=== PATIENT | female | born 1940 | race Caucasian/White ===

== ENCOUNTER → 2019-12-25 10:53 | Outpatient (BNVA) | payer MEDICARE, SELFPAY | PROVIDERS: Family Provider Family Medicine; PCP Family Medicine; Visit Provider Specialist | DX: B02.29 Other postherpetic nervous system involvement (principal); Z87.891 Personal history of nicotine dependence | CPT/HCPCS: 99213 ==

== ENCOUNTER → 2020-09-25 09:21 | Outpatient (BNVA) | payer MEDICARE, SELFPAY | PROVIDERS: Family Provider Family Medicine; PCP Family Medicine; Visit Provider Specialist | DX: B02.29 Other postherpetic nervous system involvement (principal); Z87.891 Personal history of nicotine dependence | CPT/HCPCS: 99213 ==

== ENCOUNTER 2020-10-29 11:18 | Emergency (ER) | payer MEDICARE, SELFPAY ==
[2020-10-29 11:27] VITALS: BP 152/87; PULSE 73; RESP 18; TEMP 36.3; O2SAT 94; BMI 37.9
--- NOTE | 2020-10-29 11:38 | XRR_ITS ---
PROCEDURE INFORMATION: Exam: XR Chest, 1 View Exam date and time: 10/29/2020 12:21 PM Age: 80 years old Clinical indication: Dyspnea and shortness of breath; Prior surgery; Patient HX: HX of breast cancer TECHNIQUE: Imaging protocol: XR of the chest Views: 1 view. COMPARISON: No relevant prior studies available. FINDINGS: Lungs: Unremarkable. No consolidation. Pleural space: Unremarkable. No pleural effusion. No pneumothorax. Heart/Mediastinum: Unremarkable. No cardiomegaly. Bones/joints: Unremarkable. Soft tissues: Intact bilateral breast implants are present. XR/XR chest 1V portable [id number] IMPRESSION: 1. No acute findings. 2. Intact bilateral breast implants.
--- NOTE | 2020-10-29 11:45 | ECG_ITS ---
[facility] Test Date: 2020-10-29 Pat Name: Vivienne Bishop Department: Room: Gender: Female Mattress Stuffer: : 1940 Requested By: Pan Martinez Order Number: [id number] Fredrick MD: Sarah Quach M.D. Measurements Intervals [place] Rate: 70 P: 60 [place]: 176 QRS: 65 QRSD: 92 T: 56 QT: 389 QTc: 422 Interpretive Statements SINUS RHYTHM No previous ECG available for comparison Electronically Signed On 10-29-2020 20:04:55 BODY STYLIST by Sarah Quach M.D. [id number]
--- NOTE | 2020-10-29 11:45 | W.ED.NAVMDI ---
HPI - Nausea/Vomiting/Diarrhea General: Chief complaint: Nausea/Vomiting/Diarrhea Stated complaint: COVID+, SOB,VOMITING, DIAHREA, WEAKNESS Time Seen by Provider: 10/29/20 11:33 History of Present Illness: HPI Narrative: The patient is a 80-year-old female who comes to the ER complaining of mild shortness of breath and generalized weakness. She tested positive for Covid 2 to 3 weeks ago and feels good some days but bad some days. She has been unable to eat or drink today and feels generally weak. She has been vomiting and having some diarrhea at home as well. MD elicited complaint: nausea, vomiting and diarrhea Associated nausea: Yes Location of pain: Diffuse Quality: cramping Exacerbating factors: eating Relieving factors: none Associated symtoms: Reports cough, fatigue, anorexia, malaise, myalgias and nausea; Denies anxiety, change in vision, chest pain, dizziness, headache(s), palpitations or short of breath Review of Systems General: Reports: 10 or more systems reviewed and unremarkable except in HPI and below Const: Reports: fatigue and malaise Eyes: Denies: change in vision, blurry vision or eye redness ENMT: Denies: throat pain, swelling of lips/tongue, ear or mastoid pain or nasal congestion Card: Denies: chest pain, palpitations, irregular heart rhythm, edema, dyspnea on exertion or orthopnea Resp: Reports: non-productive cough; Denies: dyspnea or productive cough GI: Reports: nausea, vomiting, diarrhea and GI cramping : Denies: flank pain, difficulty voiding, urinary frequency or urinary urgency Musc: Denies: neck pain, back pain, extremity pain, joint pain, joint redness, limited range of motion or muscle weakness Skin/Breast: Denies: rash, pruritus, erythema, skin pain or skin tenderness Neuro: Denies: headache(s), numbness in extremities, weakness in extremities, sensory changes, difficulty walking, dizziness, confusion or Slurred speech present Psych: Denies: anxiety or depression Endo: Denies: polyuria All/Imm: Denies: urticaria, throat swelling or tongue swelling PFSH ED PFSH: Family History Other CAD (coronary artery disease) Cancer Hypertension Stroke Denies family history of Diabetes Social History Smoking and tobacco status: former smoker Quit status (tobacco): has quit using tobacco Year quit tobacco: 1975 Alcohol intake: never History of recent travel: No Physical Exam Const: COMMON NORMALS: no acute distress, average body habitus, patient oriented x3, no limitations, healthy appearing, alert and well nourished GENERAL APPEARANCE: cooperative, comfortable, well kempt and well developed ORIENTATION/CONSCIOUSNESS: Yes awake, Yes oriented to person, Yes oriented to place and Yes oriented to time HENMT: COMMON NORMALS: normocephalic, external ears normal and Normal external nose present HEAD & SCALP: normal to inspection and normocephalic NOSE: Normal external nose present EXTERNAL EAR: Yes external ears normal MOUTH: Normal oral and palatal mucosa present THROAT: posterior oropharynx normal Eye: COMMON NORMALS: Equal, round and reactive pupils present and EOMs intact bilaterally GENERAL EYE: appearance normal, both eyes and all related structures PUPIL: Yes Equal, round and reactive pupils present Neck/C-Spine: COMMON NORMALS: full ROM, no lymphadenopathy, no meningeal signs and no JVD GENERAL: Yes normal visual inspection Lymph: LYMPHATIC: no lymphadenopathy noted Chest: COMMONS NORMALS: normal inspection of the chest and normal palpation of entire chest wall Resp: COMMON NORMALS: normal respiratory effort, No retractions, No use of accessory muscles, clear to auscultation bilaterally and percussion normal EFFORT & INSPECTION: Yes able to speak in complete sentences AUSCULTATION: clear to auscultation bilaterally PERCUSSION: percussion normal Cardio: COMMON NORMALS: no JVD, regular rate, regular rhythm, S1 normal heart sound present, S2 normal heart sound present and Peripheral pulses 2+ throughout RATE: regular rate RHYTHM: regular rhythm HEART SOUNDS: S1 normal heart sound present and S2 normal heart sound present PERIPHERAL PULSES: Peripheral pulses 2+ throughout GI: COMMON NORMALS: Normal to inspection, nondistended, normoactive bowel sounds present, Soft to palpation, non-tender and no masses INSPECTION: Yes normal to inspection PALPATION: Yes Soft to palpation : COMMON NORMALS: Yes no CVA tenderness BLADDER/KIDNEY EXAM: Yes no CVA tenderness Back/Pelvis: COMMON NORMALS: no CVA tenderness, thoracic and lumbar spine normal to inspection, no thoracic nor lumbar tenderness and thoraco-lumbar ROM normal Extremity: COMMON NORMALS: normal to inspection, full ROM, capillary refill normal, no joint enlargement and no pedal edema GENERAL: Yes normal exam except as noted Neuro: COMMON NORMALS: patient oriented x3, CN's II-XII intact bilaterally, moves all extremities, no focal motor deficits, no sensory deficits noted and gait normal SENSORIUM/ORIENTATION: Yes alert, Yes oriented to person, Yes oriented to place and Yes oriented to time MENINGEAL SIGNS: Yes no meningeal signs Psych: COMMON NORMALS: mental status grossly normal, Normal thought process present, cooperative, normal affect and speech normal APPEARANCE: Yes well kempt ATTITUDE: Yes calm SPEECH: Yes normal speech THOUGHT PROCESS: Normal thought process present Skin: COMMON NORMALS: no rashes or lesions noted GENERAL SKIN EXAM: no rashes or lesions noted Course Vital Signs: Vital signs: Vital Signs Temperature 97.3 F L 10/29/20 11:27 Pulse Rate 76 10/29/20 14:12 Respiratory Rate 19 H 10/29/20 14:12 Blood Pressure 166/100 10/29/20 14:12 Pulse Oximetry 95 10/29/20 14:12 MDM - Nausea/Vomiting/Diarrhea MDM Narrative: Medical decision making narrative: The patient came in complaining of prolonged fatigue, vomiting, diarrhea and weakness likely related to recovering from Covid. She was given fluids, Toradol, Zofran with good improvement of her symptoms. Imaging was normal and she is stable for discharge home. ER with worsening symptoms otherwise follow-up with primary care doctor in a few days Lab Data: Labs: Lab Results 10/29/20 10/29/20 10/29/20 Range/Units 11:47 11:47 11:47 WBC 4.9 (4.0-10.0) 10^3/ uL RBC 4.65 (4.1-5.3) 10^6/u L Hgb 13.9 (11.5-15.3) g/dL Hct 41.8 (37.0-47.0) % MCV 89.9 (81-99) fL MCH 29.9 (28.0-34.0) pg MCHC 33.3 (30.0-36.0) g/dL RDW 13.6 (12.1-15.1) % Plt Count 261 (130-400) 10^3/c mm MPV 9.7 (7.4-10.4) fL Neut % (Auto) 64.2 % Lymph % (Auto) 25.9 % [place] % (Auto) 9.3 % Eos % (Auto) 0.2 % Baso % (Auto) 0.2 % Neut # (Auto) 3.17 (1.8-7.7) 10^3/u L Lymph # (Auto) 1.3 (0.8-4.8) 10^3/u L [place] # (Auto) 0.5 (0.2-0.9) 10^3/u L Eos # (Auto) 0.0 (0.0-0.8) 10^3/u L Baso # (Auto) 0.0 (0.0-0.1) 10^3/u L Nucleated RBC % (a uto) 0 % Nucleated RBCs # 0.0 /100WBC D-Dimer 2.11 H (0-0.59) ug/mIFE U Sodium 138 (136-145) mmol/L Potassium 3.5 (3.5-5.1) mmol/L Chloride 97 L (98-107) mmol/L Carbon Dioxide 29 (22-29) mmol/L Anion Gap 15.5 (5-19) BUN 18 (8-23) mg/dL Creatinine 0.8 (0.5-0.9) mg/dL GFR Calculation Not Reportable Glucose 109 (65-115) mg/dL Calculated Osmolal ity 288 (285-295) mOsm/k g Lactate (0.5-2.2) mmol/L Calcium 9.3 (8.5-10.5) mg/dL Total Bilirubin 0.7 (0.15-1.2) mg/dL AST 34 H (0-32) U/L ALT 26 (0-33) U/L Alkaline Phosphata se 111 H (35-105) IU/L Troponin T Baselin e (0-10) ng/L NT-Pro-B Natriuret Pep 322 (0-450) pg/mL Total Protein 7.0 (6.6-8.7) g/dL Albumin 3.8 (3.5-5.2) g/dL Globulin 3.2 (1.3-4.6) g/dL Lipase 19 (13-60) U/L 10/29/20 10/29/20 Range/Units 11:47 11:47 WBC (4.0-10.0) 10^3/ uL RBC (4.1-5.3) 10^6/u L Hgb (11.5-15.3) g/dL Hct (37.0-47.0) % MCV (81-99) fL MCH (28.0-34.0) pg MCHC (30.0-36.0) g/dL RDW (12.1-15.1) % Plt Count (130-400) 10^3/c mm MPV (7.4-10.4) fL Neut % (Auto) % Lymph % (Auto) % [place] % (Auto) % Eos % (Auto) % Baso % (Auto) % Neut # (Auto) (1.8-7.7) 10^3/u L Lymph # (Auto) (0.8-4.8) 10^3/u L [place] # (Auto) (0.2-0.9) 10^3/u L Eos # (Auto) (0.0-0.8) 10^3/u L Baso # (Auto) (0.0-0.1) 10^3/u L Nucleated RBC % (a uto) % Nucleated RBCs # /100WBC D-Dimer (0-0.59) ug/mIFE U Sodium (136-145) mmol/L Potassium (3.5-5.1) mmol/L Chloride (98-107) mmol/L Carbon Dioxide (22-29) mmol/L Anion Gap (5-19) BUN (8-23) mg/dL Creatinine (0.5-0.9) mg/dL GFR Calculation Glucose (65-115) mg/dL Calculated Osmolal ity (285-295) mOsm/k g Lactate 1.3 (0.5-2.2) mmol/L Calcium (8.5-10.5) mg/dL Total Bilirubin (0.15-1.2) mg/dL AST (0-32) U/L ALT (0-33) U/L Alkaline Phosphata se (35-105) IU/L Troponin T Baselin e 10 (0-10) ng/L NT-Pro-B Natriuret Pep (0-450) pg/mL Total Protein (6.6-8.7) g/dL Albumin (3.5-5.2) g/dL Globulin (1.3-4.6) g/dL Lipase (13-60) U/L Discharge Plan Discharge Patient Disposition: Home Clinical Impression: Gastroenteritis Condition: Stable Prescriptions: New ondansetron 4 mg tablet,disintegrating 4 mg PO Q8H 4 Days Qty: 12 RF: 0 No Action hydrocodone-acetaminophen [Wiseman] 5-325 mg tablet 1 tab PO BID PRN (Reason: pain) 30 Days Qty: 60 RF: 0 gabapentin 400 mg capsule 1,200 mg PO BID Qty: 180 RF: 3 simvastatin 20 mg tablet 20 mg PO DAILY RF: 0 vitamin E 200 unit capsule 200 unit PO DAILY RF: 0 aspirin [Aspir-81] 81 mg tablet,delayed release (DR/EC) 81 mg PO DAILY RF: 0 Discharge Orders: Discharge ED (Routine); Ordered 10/29/20 Ordered By: Pan Martinez Referrals: George Walker MD [Primary Care Provider] - Discharge Diet: Advance as tolerated Discharge Activity: Resume usual activity Activity Restrictions/Additional Instructions: You are likely still suffering from weakness related to recovering from Covid. Please continue to drink lots of fluids and take Tylenol and ibuprofen to help you with the symptoms as well as Zofran to help with the nausea and vomiting. Return to the ER with worsening symptoms otherwise follow-up with your primary care physician in a few days. Coding Level of Care Code ED Proposal Specialist for Manuelito Fwanibal Exam Comprehensive
[2020-10-29] MEDS: acetaminophen 325 mg Tablet 650 MG PO (11:56)
[2020-10-29 11:57] LABS: Basophils % 0.2 %; Eosinophils % 0.2 %; Hematocrit 41.8 % (37.0-47.0); Hemoglobin 13.9 g/dL (11.5-15.3); Lymphocytes # 1.3 10^3/uL (0.8-4.8); Lymphocytes % 25.9 %; Mean Corpuscular HGB Conc 33.3 g/dL (30.0-36.0); Mean Corpuscular Hemoglobin 29.9 pg (28.0-34.0); Mean Corpuscular Volume 89.9 fL (81-99); Mean Platelet Volume 9.7 fL (7.4-10.4); Monocytes # 0.5 10^3/uL (0.2-0.9); Monocytes % 9.3 %; Neutrophils # 3.17 10^3/uL (1.8-7.7); Neutrophils % 64.2 %; Nucleated Red Blood Cells % 0 %; Platelet Count 261 10^3/cmm (130-400); Red Blood Count 4.65 10^6/uL (4.1-5.3); Red Cell Distribution Width 13.6 % (12.1-15.1); White Blood Count 4.9 10^3/uL (4.0-10.0)
[2020-10-29] MEDS: sodium chloride 0.9% 1,000 ML 999 ML IV (11:58)
[2020-10-29 12:00] VITALS: BP 155/90; PULSE 71; RESP 14; O2SAT 97
[2020-10-29 12:13] LABS: D Dimer 2.11 ug/mIFEU (0-0.59)
[2020-10-29 12:14] LABS: Slide Review Slide Review Perform
[2020-10-29 12:22] LABS: Lactate (Lactic Acid level) 1.3 mmol/L (0.5-2.2); Troponin(5th) Baseline 10 ng/L (0-10)
[2020-10-29] MEDS: ondansetron 2 mg/ML SDV 2 mL 4 MG IVP (12:26)
[2020-10-29 12:29] LABS: Alanine Aminotransferase 26 U/L (0-33); Albumin Level 3.8 g/dL (3.5-5.2); Alkaline Phosphatase 111 IU/L (35-105); Anion Gap 15.5 (5-19); Aspartate Amino Transferase 34 U/L (0-32); Blood Urea Nitrogen 18 mg/dL (8-23); Calcium 9.3 mg/dL (8.5-10.5); Carbon Dioxide 29 mmol/L (22-29); Chloride 97 mmol/L (98-107); Globulin 3.2 g/dL (1.3-4.6); Glucose 109 mg/dL (65-115); Lipase 19 U/L (13-60); NT Pro B Type Natriuretic Pept 322 pg/mL (0-450); Osmolality Calculated 288 mOsm/kg (285-295); Potassium 3.5 mmol/L (3.5-5.1); Sodium 138 mmol/L (136-145); Total Bilirubin 0.7 mg/dL (0.15-1.2)
--- NOTE | 2020-10-29 12:48 | CT_ITS ---
WS: [id number] CT CHEST ANGIOGRAPHY WITH REFORMATS HISTORY: r/o PE TECHNIQUE: Contiguous axial images are obtained through the chest during arterial injection of intrav enous contrast. Images are reconstructed to evaluate the pulmonary arteries. MIP imaging also reviewe d. All CT scans at [facility] use at least one of these dose optimization techniques: aut omated exposure control; mA and/or kV adjustment per patient size (includes targeted exams where dose is matched to clinical indication); or iterative reconstruction. CONTRAST: Omnipaque 350; 95 mL IV. DLP: 617.12 mGy.cm COMPARISON: None available. Limited opacification of the pulmonary arteries. Poor contrast bolus injection. There is no central p ulmonary embolism. Beyond the segmental branches the opacification is limited. Pulmonary artery is en larged. Mild atherosclerosis of aorta. No aneurysm or dissection. Moderate enlargement of the heart w ith no pericardial effusion. No pleural effusion. Moderate scattered opacifications. Groundglass opacifications with increasing areas of consolidation in the periphery of the lower lobes. Consistent with a history of Covid. No suspicious mass or pneumo anastasiya. No mediastinal or hilar adenopathy. Bilateral mastectomies. Prior cholecystectomy. Visualized liver is negative on the early enhancement phase. No adrenal mass. Mild central pancolitis. Increase in the thoracic kyphosis. No osteoblastic or osteolytic bone disease. CT/CT angio chest PE protcl [id number] IMPRESSION: 1. No central pulmonary emboli. 2. Pulmonary hypertension. 3. Scattered pulmonary opacifications and typical distribution for Covid 19. 4. Moderate cardiomegaly.
[2020-10-29 13:08] VITALS: BP 139/96; PULSE 72; RESP 17; O2SAT 98
[2020-10-29] MEDS: iohexol 350 mg/mL 100 mL Btl IV (13:54)
[2020-10-29 14:12] VITALS: BP 166/100; PULSE 76; RESP 19; O2SAT 95
[2020-10-29 15:32] VITALS: BP 145/100; PULSE 73; RESP 15; O2SAT 98
== END 2020-10-29 15:33 | disposition home or self-care (01) ==
PROVIDERS: Emergency Provider Family Medicine; PCP Family Medicine
DX: K52.9 Noninfective gastroenteritis and colitis, unspecified (principal); Z79.82 Long term (current) use of aspirin; Z87.891 Personal history of nicotine dependence
CPT/HCPCS: 12345; 71045; 71275; 80053; 83605; 83690; 83880; 84484; 85025; 85378; 87040; 93005; 96361; 96374; 99284; J2405; J7030; Q9967

== ENCOUNTER → 2021-04-21 09:57 | Outpatient (BNVA) | payer MEDICARE, SELFPAY | PROVIDERS: PCP Family Medicine; Visit Provider Specialist | DX: B02.29 Other postherpetic nervous system involvement (principal) | CPT/HCPCS: 99213 ==

== ENCOUNTER → 2021-07-22 07:59 | Outpatient (BNVA) | payer MEDICARE, SELFPAY | PROVIDERS: PCP Family Medicine; Visit Provider Specialist | DX: B02.29 Other postherpetic nervous system involvement (principal); Z87.891 Personal history of nicotine dependence | CPT/HCPCS: 99213; 99214 ==

== ENCOUNTER → 2022-03-17 13:05 | Outpatient (BNVA) | payer MEDICARE, SELFPAY | PROVIDERS: PCP Family Medicine; Visit Provider Specialist | DX: B02.29 Other postherpetic nervous system involvement (principal); Z79.891 Long term (current) use of opiate analgesic | CPT/HCPCS: 99213; 99214 ==

== ENCOUNTER → 2022-06-17 15:00 | Outpatient (BNVA) | payer MEDICARE, SELFPAY | PROVIDERS: PCP Family Medicine; Visit Provider Specialist | DX: B02.29 Other postherpetic nervous system involvement (principal); Z79.891 Long term (current) use of opiate analgesic | CPT/HCPCS: 99213; 99214 ==

== ENCOUNTER → 2022-11-25 15:43 | Outpatient (BNVA) | payer MEDICARE, SELFPAY | PROVIDERS: PCP Family Medicine; Visit Provider Specialist | DX: B02.29 Other postherpetic nervous system involvement (principal) | CPT/HCPCS: 99213 ==

== ENCOUNTER → 2023-05-25 08:12 | Outpatient (BNVA) | payer MEDICARE, SELFPAY | PROVIDERS: PCP Family Medicine; Visit Provider Specialist | DX: B02.29 Other postherpetic nervous system involvement (principal) | CPT/HCPCS: 99213 ==

== ENCOUNTER → 2023-11-17 09:12 | Outpatient (BNVA) | payer MEDICARE, SELFPAY | PROVIDERS: PCP Family Medicine; Visit Provider Specialist | DX: B02.29 Other postherpetic nervous system involvement (principal); R29.90 Unspecified symptoms and signs involving the nervous system | CPT/HCPCS: 99213 ==

== ENCOUNTER → 2024-10-18 14:10 | Outpatient (BNVA) | payer MEDICARE, SELFPAY | PROVIDERS: PCP Family Medicine; Referring Provider Family Medicine; Visit Provider Specialist | DX: B02.23 Postherpetic polyneuropathy (principal); R29.90 Unspecified symptoms and signs involving the nervous system; B02.29 Other postherpetic nervous system involvement | CPT/HCPCS: 99213 ==

== ENCOUNTER → 2025-04-18 11:44 | Outpatient (BNVA) | payer MEDICARE, SELFPAY | PROVIDERS: PCP Family Medicine; Visit Provider Specialist | DX: B02.23 Postherpetic polyneuropathy (principal); R29.90 Unspecified symptoms and signs involving the nervous system; B02.29 Other postherpetic nervous system involvement | CPT/HCPCS: 99212 ==

== ENCOUNTER 2025-07-28 12:13 | Emergency (ER) | payer MEDICARE, SELFPAY ==
--- NOTE | 2025-07-28 12:17 | ECG_ITS ---
[facility] Date: 2025-07-28 Pat Name: Vivienne Bishop Department: Room: Gender: Female Testing Director: : 1940 Requested By: Regine Whelan Order Number: [id number] Fredrick MD: Arsalan Orellana M.D. Measurements Intervals [place] Rate: 87 P: 2 IN: 174 QRS: 81 QRSD: 93 T: 81 QT: 367 QTc: 444 Interpretive Statements SINUS RHYTHM LOW QRS VOLTAGE IN PRECORDIAL LEADS [QRS DEFLECTION < 1.0 mV IN CHEST LEADS] MINIMAL ST DEPRESSION [0.025+ mV ST DEPRESSION] Compared to ECG 10/29/2020 12:00:49 Low QRS voltage now present ST (T wave) deviation now present Electronically Signed On 07-31-2025 19:33:27 CDT by Arsalan Orellana M.D. [id number]
--- NOTE | 2025-07-28 12:17 | XRR_ITS ---
PROCEDURE INFORMATION: Exam: XR Chest Exam date and time: 07/28/2025 1:51 PM Age: 84 years old Clinical indication: Pain; Chest pressure; Additional info: Chest pain TECHNIQUE: Imaging protocol: Radiologic exam of the chest. Views: 1 view. COMPARISON: CT angio chest PE protcl [id number] 10/29/2020 1:40 PM FINDINGS: Lungs: Pulmonary vessels are within normal limits. Left basilar linear density. Pleural spaces: No pneumothorax. Heart/Mediastinum: Cardiomediastinal silhouette is within normal limits. Bones/joints: Unremarkable. XR/XR chest 1V portable [id number] IMPRESSION: 1. No acute pulmonary finding. 2. Left basilar linear density. Finding could represent scarring or atelectasis.
--- OUTSIDE RECORDS SUMMARY | 2025-07-28 12:19 | XMS_ITS | Encounter Summary ---
Author Organization [facility] Address [address] [place] [address] Care Team Providers Care Scrap Cutter Name Role Phone Non-Staff, Physician Primary Care Provider Unava ilable Encounter Details Date Type Department Care Team (Late st Contact Info) Description 11/25/2005 [place] [facility] [facility] [address] [place] [phone] Eros Munoz MD [address] [place] [address] MALIGN NEOPL BREAST NEC (CMS/HCC) (Primary Dx) Social History Tobacco Use Types Packs/Day Years Used Date Smoking Tobacco: Never Assessed Comments Unknown Sex and Gender Information Value Date Recorded Sex Assigned at Not on file Legal Sex 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
--- OUTSIDE RECORDS SUMMARY | 2025-07-28 12:19 | XMS_ITS | Encounter Summary ---
Author Organization [facility] Address [address] [place] [address] Care Team Providers Care Coal Tower Operator Name Role Phone Non-Staff, Physician Primary Care Provider Unava ilable Encounter Details Date Type Department Care Team (Latest Contact Info) Description 02/14/2003 Outpatient Historical [facility] [address] [place] [phone] Prince Martinez MD NO ADDRESS ON FILE MALIGN NEOPL BREAST NEC (CMS/HCC) (Primary Dx) Social History Tobacco Use Types Packs/Day Years Used Date Smoking Tobacco: Never Assessed Comments Unknown Sex and Gender Information Value Date Recorded Sex Assigned at Not on file Legal 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
--- OUTSIDE RECORDS SUMMARY | 2025-07-28 12:19 | XMS_ITS | Encounter Summary ---
Author Organization [facility] Address [address] [place] [address] Care Team Providers Care Search Engine Marketing Strategist Name Role Phone Non-Staff, Physician Primary Care Provider Unava ilable Encounter Details Date Type Department Care Team (Latest Contact Info) Description 06/27/2003 Outpatient Historical [facility] [place] [address] [place] [address] Diogenes Bah MD [address] [place] [phone] ANAL OR RECTAL PAIN (Primary Dx) Social History Tobacco Use Types Packs/Day Years Used Date Smoking Tobacco: Never Assessed Comments Unknown Sex and Gender Information Value Date Recorded Sex Assigned at Not on file Legal 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
--- OUTSIDE RECORDS SUMMARY | 2025-07-28 12:19 | XMS_ITS | Encounter Summary ---
Author Organization [facility] Address [address] [place] [address] Care Team Providers Care Grizzly Worker Name Role Phone Non-Staff, Physician Primary Care Provider Unava ilable Encounter Details Date Type Department Care Team (Latest Contact Info) Description 08/22/2003 Outpatient Historical [facility] [place] [facility] [address] [place] [phone] Prince Martinez MD NO ADDRESS ON FILE MALIGN NEOPL BREAST NEC (CMS/HCC) (Primary Dx) Social History Tobacco Use Types Packs/Day Years Used Date Smoking Tobacco: Never Assessed Comments Unknown Sex and Gender Information Value Date Recorded Sex Assigned at Not on file Legal Sex Female 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
[2025-07-28 12:20] VITALS: BP 115/75; PULSE 87; RESP 17; TEMP 36.7; O2SAT 96; BMI 38.4
--- OUTSIDE RECORDS SUMMARY | 2025-07-28 12:20 | XMS_ITS | Encounter Summary ---
Author Organization [facility] Address [address] [place] [address] Care Team Providers Care Cranberry Grower Name Role Phone Non-Staff, Physician Primary Care Provider Unava ilable Encounter Details Date Type Department Care Team (Late st Contact Info) Description 11/29/2006 [place] [facility] [place] [facility] [address] [place] [phone] Eros Munoz MD [address] [place] [address] Malignant Neoplasm of Other Specified Sites of Female Breast (CMS/HCC) (Primary Dx) Social History Tobacco Use Types Packs/Day Years Used Date Smoking Tobacco: Never Assessed Comments Unknown Sex and Gender Information Value Date Recorded Sex Assigned at Not on file Legal Sex Female 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
--- OUTSIDE RECORDS SUMMARY | 2025-07-28 12:20 | XMS_ITS | Clinical Summary ---
Author Organization [facility] Address [address] [place] [address] Care Team Providers Care Privacy Attorney Name Role Phone Non-Staff, Physician Primary Care Provider Unava ilable Allergies No known active allergies Medications atorvastatin (LIPITOR) 20 mg Oral tablet Take 20 mg by mouth Daily LATE. Active gabapentin (NEURONTIN) 100 mg capsule Take 100 mg by mouth 4 times daily. Active Active Problems Problem Noted Date Diagnosed Date Personal history of malignant neoplasm of breast 03/02/2013 Diverticulitis of colon (wit hout mention of hemorrhage)(562.11) 08/27/2010 Malignant neoplasm of other specified sites of female breast Family History Medical History Relation Name Comments Cancer Father Heart Disease Mother Relation Name Status Comments Father Mother Social History Tobacco Use Types Packs/Day Years Used Date Smoking Tobacco: Former Cigarettes 0 [birth year]02[birth year]1951 - 03/02/1976 Alcohol Use Standard Drinks/Week Comments No 0 (1 standard drink = 0.6 oz pur e alcohol) Comments Unknown Sex and Gender Information Value Date Recorded Sex Assigned at Not on file Legal Sex Female 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 Gender Identity Not on file Sexual Orientation Not on file Last Filed Vital Signs Vital Sign Reading Time Taken Comments Blood Pressure 116/80 05/08/2016 9:13 AM CDT Pulse 71 05/08/2016 9:13 AM CDT Temperature 35.9 C (96.6 F) 05/08/2016 9:13 AM CDT Respiratory Rate - - Oxygen Saturation 98% 05/08/2016 9:13 AM CDT Inhaled Oxygen Concentration - - Weight 105.2 kg (232 lb) 05/08/2016 9:13 AM CDT Height 165.1 cm (5' 5 ) 05/08/2016 9:13 AM CDT Body Mass Index 38.61 05/08/2016 9:13 AM CDT Plan of Treatment Health Maintenance Due Date Last Done Comments DTAP/TDAP/TD VACCINES (1 - Tdap) 1960 PNEUMOCOCCAL VACCINE 50+ YEARS (1 of 1 - PCV) 10/24/18 92 ZOSTER VACCINE (1 of 2) 1991 OSTEOPOROSIS SCREENING 2006 RSV VACCINE (60+ or ) (1 - 1-dose 75+ series) 2016 INFLUENZA VACCINE (#1) [address] [place] [id number] MEDICARE PART A AND B [place] [id number] Care Teams Privacy Attorney Relationship Specialty Start Date End Date Non-Staff, Physician NO ADDRESS ON FILE PCP - General 11/10/07
--- OUTSIDE RECORDS SUMMARY | 2025-07-28 12:20 | XMS_ITS | Clinical Summary ---
Author Organization [facility] Address [address] Andrews: Epic Prelude ADT ELISA ASKEW [id number] Care Team Providers Care Rfid Systems Architect Name Role Phone Non-Staff, Physician Primary Care Provider Unava ilable Allergies No known active allergies Medications gabapentin (NEURONTIN) 100 mg capsule Take 100 mg by mouth 4 times daily. 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 Family History Medical History Relation Name Comments Cancer Father Heart Disease Mother Relation Name Status Comments Father Mother Social History Tobacco Use Types Packs/Day Years Used Date Smoking Tobacco: Former Cigarettes Q uit: 03/02/1976 Alcohol Use Standard Drinks/Week Comments No 0 (1 standard drink = 0.6 oz pur e alcohol) Comments Unknown Sex and Gender Information Value Date Recorded Sex Assigned at Not on file Legal Sex Female 1:02 AM [employer]ACHINE [employer] Gender Identity Not on file Sexual Orientation Not on file Last Filed Vital Signs Vital Sign Reading Time Taken Comments Blood Pressure 116/80 05/08/2016 9:13 AM CDT Pulse 71 05/08/2016 9:13 AM CDT Temperature 35.9 C (96.6 F) 05/08/2016 9:13 AM CDT Respiratory Rate - - Oxygen Saturation - - Inhaled Oxygen Concentration - - Weight 105.2 [...] 75+ series) 2016 INFLUENZA VACCINE (#1) 2025 Care Teams Rfid Systems Architect Relationship Specialty Start Date End Date Non-Staff, Physician NO ADDRESS ON FILE PCP - General 11/10/07
--- OUTSIDE RECORDS SUMMARY | 2025-07-28 12:20 | XMS_ITS | Data Portability ---
Author Organization [facility] [place] [facility] Address [address] [place] [address] [address] [place] [address] Care Team Providers Care Tube Washer Name Role Phone BERTRAM RIVERA Primary Care Provider Unavaila ble Assessment No assessment recorded. Plan of Treatment Reminders Order Date Submit Date Provider Last Modified By Organization Details Last Modified Time Details Appointments RECHECK 2024 08:20A Nga Rivera MD Not available Not available Not available Lab CMP, serum or plasma 2024 025 [place] [facility] [place] [facility], [address], [place], [address], 01/05/2025 13:46:29 CMP, serum or plasma [email or web address] [place], [place] [address], [address], [place], [address], 12/28/2024 19:46:53 lipid panel, blood 2023 024 [place] [facility], [address], [address], [place], [address], 06/30/2024 10:08:47 CBC 2023 024 [facility], [address], [address], [place], [address], 06/30/2024 09:36:00 Referral physical therapist referral 2024 025 [email or web address] [facility], [address] [place], [address], 07/05/2025 17:05:33 Procedures None recorded. Surgeries None recorded. Imaging XR, lumbosacr al spine, 2 or 3 view 2024 025 [email or web address] [facility], [address] [place], [address], 07/02/2025 09:28:22 Medication Orders cyclobenz aprine 5 mg tablet 2024 025 [email or web address] [facility], [address] [place] [address], [address], 06/19/2025 18:41:19 ketorolac 30 mg/mL (1 mL) injection solution 2024 025 [email or web address] Not available 05/15/2025 11:02:28 cyclobenz aprine 5 mg tablet 2024 025 [facility], [facility] [place], [address], 05/15/2025 12:26:36 nystatin 100,000 unit/gram topical powder 2024 025 [facility], [address] [place] [address], [address], 01/05/2025 17:46:42 Patient TargetsNo targets recorded. Patient Instructions Encounter Date Encounter Id Patient Instructions Last Modified By Organization Details Last Modified Time 05/15/2025 [id number] back pain: care instructions [email or web address] Not available 05/15/2025 10:51:14 Reason for Referral Physical Therapist Referral for Disorder of right sciatic nerve Referring Physician: Bertram Rivera, Family Medicine, Encounter Date: 06/19/2025 Results Created Date Observation Date Name Description Value Unit Range Abnormal Flag Note LastModifiedBy Organization Detail LastModifiedTime 06/30/20 24 06/30/2024 CBC WBC 4.1 x10 4.0-10 .5 Not Available [facility] [address], [place], [address], 06/30/2024 09:36:00 06/30/20 24 06/30/2024 CBC RBC 4.34 x10 3.50-5 .50 Not Available [facility] [address], [place], [address], 06/30/2024 09:36:00 06/30/20 24 06/30/2024 CBC HGB 13.5 g/dL 12.0-1 6.0 Not Available [facility] [address], [place], [address], 06/30/2024 09:36:00 06/30/20 24 06/30/2024 CBC HCT 39.8 % 37.0-4 7.0 Not Available [facility] [address], [place], [address], 06/30/2024 09:36:00 06/30/20 24 06/30/2024 CBC MCV 91.7 fL 80.0-9 9.9 Not Available [facility] [address], [place], [address], 06/30/2024 09:36:00 06/30/20 24 06/30/2024 CBC MCH 31.1 pg 27.0-3 2.0 Not Available [facility] [address] [facility] [address], [place], [address], 06/30/2024 09:36:00 06/30/20 24 06/30/2024 CBC MCHC 33.9 g/dL 32.0-3 6.0 Not Available [facility] [address], [place], [address], 06/30/2024 09:36:00 06/30/20 24 06/30/2024 CBC RDW 13.7 % 11.5-1 4.5 Not Available [facility] [address] [facility] [address], [place], [address], 06/30/2024 09:36:00 06/30/20 24 06/30/2024 CBC plt 209.5 x10 140.0- 451.0 Not Available [facility] [address] [facility] [address] [facility], [place], [address], 06/30/2024 09:36:00 06/30/20 24 06/30/2024 CBC lymphocytes % 29.7 % 20.0-5 0.0 Not Available [facility] [address] [facility] [address] [facility], [place], [address], 06/30/2024 09:36:00 06/30/20 24 06/30/2024 CBC granulcytes % 52.4 % 30.0-7 0.0 Not Available [facility] [address] [facility] [address], [place], [address], 06/30/2024 09:36:00 06/30/20 24 06/30/2024 CBC monocytes % 13.4 % 2.0-16 .0 Not Available [facility] [address] [facility], [place], [address], 06/30/2024 09:36:00 06/30/20 24 06/30/2024 CBC granulcytes# 2.2 x10 Not Sandee ilable [facility] [address] [facility] [address] [facility], [place], [address], 06/30/2024 09:36:00 06/30/20 24 06/30/2024 CBC lymphocytes # 1.2 x10 Not Available [facility] [address] [facility] [address] [facility], [place], [address], 06/30/2024 09:36:00 06/30/20 24 06/30/2024 CBC monocytes # 0.6 x10 Not Avai lable [facility] [address] [facility], [place], [address], 06/30/2024 09:36:00 06/30/20 24 06/30/2024 LIPID PROFI LE (FEMA LE) cholesterol 166.0 mg/dL 0.0-20 0.0 Not Available [facility] [address] [facility] [address], [place], [address], 06/30/2024 10:08:47 06/30/20 24 06/30/2024 LIPID PROFI LE (FEMA LE) trig 89.0 mg/dL 0.0-15 0.0 Not Available [facility] [address] [facility] [address], [place], [address], 06/30/2024 10:08:47 06/30/20 24 06/30/2024 LIPID PROFI LE (FEMA LE) HDL - direct 69.0 mg/dL >40.0 Not Available [facility] [address] [facility] 1, [place], [address], 06/30/2024 10:08:47 06/30/20 24 06/30/2024 LIPID PROFI LE (FEMA LE) VLDL - direct 17.8 mg/dL Not Available [facility] [address] [facility] [address], [place], [address], 06/30/2024 10:08:47 06/30/20 24 06/30/2024 LIPID PROFI LE (FEMA LE) LDL - direct 79.2 mg/dL 0.0-13 0.0 Not Available [facility] [address] [facility] [address], [place], [address], 06/30/2024 10:08:47 01/06/20 25 01/05/2025 CMP (FEMA LE) glucose 101.0 mg/dL 60.0-9 9.0 high Not Available [facility] [address] [address], [place], [address], 01/05/2025 13:46:29 01/06/20 25 01/05/2025 CMP (FEMA LE) BUN (blood urea nitrogen) 22.0 mg/dL 10.0-2 6.0 Not Available [facility] [address] [address], [place], [address], 01/05/2025 13:46:29 01/06/20 25 01/05/2025 CMP (FEMA LE) creatinine (serum) 0.9 mg/dL 0.4-1. 5 Not Available [facility] [address] [address], [place], [address], 01/05/2025 13:46:29 01/06/20 25 01/05/2025 CMP (FEMA LE) BUN/creatini ne ratio 24.44 ratio Not Available [facility] [address] [address], [place], [address], 01/05/2025 13:46:29 01/06/20 25 01/05/2025 CMP (FEMA LE) eGFR calculated 63.6 Not Available [facility] [address] [address], [place], [address], 01/05/2025 13:46:29 01/06/20 25 01/05/2025 CMP (FEMA LE) total protein 7.5 g/dL 6.0-8. 5 Not Available [facility] [address] [address], [place], [address], 01/05/2025 13:46:29 01/06/20 25 01/05/2025 CMP (FEMA LE) total bilirubin 0.8 mg/dL 0.2-1. 3 Not Available [facility] [address] [facility] [address] [facility], [place], [address], 01/05/2025 13:46:29 01/06/20 25 01/05/2025 CMP (FEMA LE) albumin 4.3 g/dL 3.5-5. 5 Not Available [facility] [address] [facility], [place], [address], 01/05/2025 13:46:29 01/06/20 25 01/05/2025 CMP (FEMA LE) globulin 3.2 calc Not Available [facility] [address] [facility] 1, [place], [address], 01/05/2025 13:46:29 01/06/20 25 01/05/2025 CMP (FEMA LE) AST (SGOT) 30.0 U/L 0.0-46 .0 Not Available [facility] [address] [facility] 1, [place], [address], 01/05/2025 13:46:29 01/06/20 25 01/05/2025 CMP (FEMA LE) altv (SGPT) 21.0 U/L 13.0-6 9.0 normal Not Available [facility] [address] [facility] [address], [place], [address], 01/05/2025 13:46:29 01/06/20 25 01/05/2025 CMP (FEMA LE) A/G ratio 1.3 ratio Not Available [facility] [address] [facility] 1, [place], [address], 01/05/2025 13:46:29 01/06/20 25 01/05/2025 CMP (FEMA LE) ALP phos 99.0 U/L 30.0-1 40.0 normal Not Available [facility] [address] [facility] 1, [place], [address], 01/05/2025 13:46:29 01/06/20 25 01/05/2025 CMP (FEMA LE) calcium 9.6 mg/dL 8.4-10 .5 Not Available [facility] [place] [facility] [address] [facility] 1, [place], [address], 01/05/2025 13:46:29 01/06/20 25 01/05/2025 CMP (FEMA LE) sodium 137.0 mmol/ L 136.0- 145.0 Not Available [facility] [place] [facility] [address] [facility] 1, [place], [address], 01/05/2025 13:46:29 01/06/20 25 01/05/2025 CMP (FEMA LE) potassium 4.0 mmol/ L 3.5-5. 1 Not Available [facility] [place] [facility] [address] [facility] 1, [place], [address], 01/05/2025 13:46:29 01/06/20 25 01/05/2025 CMP (FEMA LE) chloride 100.0 mmol/ L 98.0-1 10.0 normal Not Available [facility] [place] [facility] [address] [facility] 1, [place], [address], 01/05/2025 13:46:29 01/06/20 25 01/05/2025 CMP (FEMA LE) C02 28.0 mmol/ L 22.0-3 1.0 Not Available [facility] [address] [facility] 1, [place], [address], 01/05/2025 13:46:29 01/06/20 25 01/05/2025 CMP (FEMA LE) anion gap 9.0 calc Not Available [facility] [address] [facility] 1, [place], [address], 01/05/2025 13:46:29 01/06/20 25 01/05/2025 CMP (FEMA LE) osmolality 286.4 calc Not Available [facility] [address], [place], [address], 01/05/2025 13:46:29 06/21/20 25 06/19/2025 XR, lumbo sacra l spine , 2 or 3 view No observ ation record ed. [facility] [address] [facility] [address] [address], [place], [address], 07/09/2025 18:35:00 Result Notes None recorded. Problems Name Problem SNOMED Code Status Onset Date Resolution Date Notes Provider Name and Address Organization Details Recorded Time Acute bronchit is 22822861 Completed 201802/20/2019 ACUTE BRONCHIT IS, UNSPECIF IED ORGANISM - Status is Inactive ; Recorded 02/21/20 19 8:55AM by Roxann Humphrey CMT, Gio on/Adden dum; Promoted ; acuity set as *; Not Available [facility] 3 03:07:23 Hemorrho idectomy Completed 201802/20/2019 Hemorrho idectomy - Status is Inactive ; 02/21/20 19 8:56AM by Roxann Humphrey CMT, Annotati on/Adden dum; Promoted ; acuity set as *; Not Available [facility] 3 03:07:23 Cholecys tectomy planned [id number] Completed 201802/20/2019 Cholecys tectomy - Status is Inactive ; 02/21/20 19 8:56AM by Roxann Humphrey CMT, Annotati on/Adden dum; Promoted ; acuity set as *; Not Available [facility] 3 03:07:23 History of malignan t neoplasm of breast 809292808 Active 2022 HISTORY OF BREAST CANCER; 12/16/19 23 4:24PM by Callie Walker, Office Visit; Promoted ; acuity set as *; [facility] 5 11:03:08 Herpes zoster [id number] Completed 202201/05/2025 Herpes Zoster; 12/16/19 23 4:24PM by Callie Walker, Office Visit; Promoted ; acuity set as *; SHANTA SHELLEY [facility] 5 11:03:03 Bilatera l lower leg edema 414636786 Active 2023 [facility] 5 11:02:58 Hypercho lesterol emia 26750921 Active 2023 [facility] 5 11:03:11 Candidia sis of skin 53987953 Active 2024 [facility] 5 11:28:19 [facility] hyperten elan 23432073 Active 2024 [facility] 11:29:28 Disorder of right sciatic nerve 17424793082 9102 Active 2024 Bertram Rivera MD [address] [place] [address], [address] [facility] 15:55:09 Problem Notes None recorded. Procedures Surgical History Date Name Laterality Status Provider Name and Address Organization Details Recorded Time hemorrhoidectomy completed SHANTA [facility] 01/05/2025 11:05:58 radical mastectomy completed [facility] 01/05/2025 11:06:38 Imaging Results None recorded. Procedure Notes None recorded. Medical Equipment None Reported. Allergies No known drug allergies Medications Name Sig Start Date Stop Date Status Note LastModified by Organization Details LastModified Time celecoxib 200 mg capsule take 1 capsule BY MOUTH EVERY DAY active Not Available Not Available No t Available Augmentin 875 mg-125 mg tablet Take 1 tablet every 12 hours by oral route for 7 days. 04/18 completed Not Available Not Available Not Available atorvastati n 20 mg tablet TAKE 1 TABLET BY MOUTH EVERY DAY active Not Available Not Available No t Available cetirizine 10 mg tablet TAKE 1 TABLET BY MOUTH EVERY DAY 2023 active vo JR/tn Not Available Not Available Not Available azithromyci n 250 mg tablet TAKE 2 TABLETS BY MOUTH TODAY, THEN TAKE 1 TABLET DAILY ON DAYS 2-5 11/08 completed Not Available Not Available Not Available fluconazole 150 mg tablet TAKE 1 TABLET today and REPEAT again in SEVEN DAYS 04/11 completed Not Available Not Available Not Available hydrocodone 5 mg-acetamin ophen 325 mg tablet TAKE 1 TABLET BY MOUTH TWICE DAILY NEEDED FOR PAIN FOR 30 DAYS active Not Available Not Available No t Available ondansetron HCl 4 mg tablet TAKE 1 TABLET BY MOUTH EVERY 6 HOURS NEEDED active Not Available Not Available No t Available prednisone 20 mg tablet Take 2 tablets every day by oral route for 5 days. 04/18 completed Not Available Not Available Not Available gabapentin 400 mg capsule TAKE 3 CAPSULES BY MOUTH TWICE DAILY FOR pain ok TO take TWO CAPSULES EVERY MORNING and THREE CAPSULES at night active Not Available Not Available No t Available triamcinolo ne acetonide 0.1 % topical cream apply a thin layer TO affected areas topically TWICE DAILY active Not Available Not Available No t Available ketorolac 30 mg/mL (1 mL) injection solution Inject 1 mL every day by intramusc ular route for 1 day. 2024 active Not Available Not Available Not Avai lable hydrochloro thiazide 12.5 mg capsule take 1 capsule BY MOUTH EVERY DAY active Not Available Not Available No t Available albuterol sulfate HFA 90 mcg/actuati on aerosol inhaler INHALE 1 PUFF BY MOUTH EVERY 4 TO 6 HOURS active Not Available Not Available No t Available ondansetron 4 mg disintegrat ing tablet DISSOLVE ONE TABLET BY MOUTH UNDER TONGUE THREE TIMES DAILY NEEDED FOR FOUR DAYS 04/11 completed Not Available Not Available Not Available cefdinir 300 mg capsule take 1 capsule BY MOUTH EVERY TWELVE HOURS for 10 days 05/24 completed Not Available Not Available Not Available fluticasone propionate 50 mcg/actuati on nasal spray,suspe nsion USE 2 SPRAYS INTRANASA L EVERY DAY 07/07 completed Not Available Not Available Not Available loratadine 10 mg tablet TAKE 1 TABLET BY MOUTH EVERY DAY 01/05 completed Not Available Not Available Not Available cyclobenzap rine 5 mg tablet TAKE 1 TABLET BY MOUTH THREE TIMES DAILY as needed for MUSCLE SPASMS active Not Available Not Available No t Available nitrofurant oin monohydrate /macrocryst als 100 mg capsule take 1 capsule BY MOUTH EVERY TWELVE HOURS for 5 days 07/07 completed Not Available Not Available Not Available [facility] 100,000 unit/gram topical powder APPLY TO THE AFFECTED AREA(S) TWICE DAILY active Not Available Not Available No t Available alprazolam QHS / HS 04/11 completed Not Available Not Available Not Available Vitals Date Recorded Body height Body mass index (BMI) Body weight Respiratory rate Body temperature Heart rate Oxygen saturation Oxygen saturation in Arterial blood by Pulse oximetry Systolic And Diastolic Provider Name and Address Organization Details Last Updated DateTime 5 161.29 cm 43.2 kg/m2 164688. 91 g 20 /min 97.6 [degF] 70 /min 96 % 96 % 120/70 mm[Hg] SHANTA SHELLEY [facility] 5 11:12:14 Date Recorded Body height Body mass index (BMI) Body weight Oxygen saturation Oxygen saturation in Arterial blood by Pulse oximetry Heart rate Respiratory rate Body temperature Systolic And Diastolic Provider Name and Address Organization Details Last Updated DateTime 5 161.29 cm 44.1 kg/m2 231181. 87 g 96 % 96 % 71 /min 16 /min 98.2 [degF] 138/80 mm[Hg] Gabby Reyes [facility] 5 10:23:24 Date Recorded Body height Body mass index (BMI) Body weight Oxygen saturation Oxygen saturation in Arterial blood by Pulse oximetry Heart rate Respiratory rate Body temperature Systolic And Diastolic Provider Name and Address Organization Details Last Updated DateTime 5 161.29 cm 42.2 kg/m2 743223. 75 g 94 % 94 % 80 /min 18 /min 97.9 [degF] 118/64 mm[Hg] FADI RIVERA [facility] 15:40:56 Date Recorded Body height Body mass index (BMI) Body weight Respiratory rate Heart rate Oxygen saturation Oxygen saturation in Arterial blood by Pulse oximetry Body temperature Systolic And Diastolic Provider Name and Address Organization Details Last Updated DateTime 4 161.29 cm 44.5 kg/m2 713228. 05 g 18 /min 78 /min 97 % 97 % 97.6 [degF] 122/70 mm[Hg] SHANTAQUINCY SHELLEY [facility] 4 10:08:43 Social History Question Answer Notes LastModified by Organizat ion Details LastModified Time Tobacco Smoking Status Never Smoker SHANTAQUINCY OLIVERNan palacio [facility] 01/05/2024 10:45:27 Are You Blind Or Do You Have Difficulty Seeing? No Information not available 01/05/2025 Are You Deaf Or Do You Have Serious Difficulty Hearing? No Information not available 01/05/2025 What Was The Date Of Your Most Recent Tobacco Screening? 05/15/2025 [email or web address] Information not available 05/15/2025 What Is Your Relationship Status? Information not available 01/05/2025 Do You Have Difficulty Walking Or Climbing Stairs? Yes Information not available 01/05/2025 Sex: Unknown Functional Status Question Answer Note LastModified by Organizat ion Details LastModified Time Do you use any illicit or recreational drugs? No Information not available 04/11/2024 Do you or have you ever used any other forms of tobacco or nicotine? No Information not available 01/05/2025 What is your level of alcohol consumption? None Information not available 04/11/2024 Are you currently employed? No Information not available 01/05/2025 Do you have transportation difficulties? No Information not available 01/05/2025 Are you able to walk independently without assistance or assistive devices? YESWOREST Information not available 01/05/2025 Do you have difficulty doing errands alone? No Information not available 01/05/2025 Are you able to care for yourself independently? Yes [email or web address] Information not available 01/05/2025 Do you have difficulty dressing, bathing, grooming, or toileting? No [email or web address] Information not available 01/05/2025 Mental Status Question Answer Note LastModified by Organization D etails LastModified Time Do you have difficulty concentrating, remembering or making decisions? No [place] [address] Information no t available 01/05/2025 Family History Nothing Reported Notes:CVA: Mother Son 1, Suman ghter 2, Cancer; father-prostate, Stroke; mother: Denied Medical History Condition Response Coronary Artery Disease N Other Y Gout N Kidney Stones N Blood Diseases N Hyperthyroidism N Blood Transfusion N Breast Cancer Y Depression N Hypothyroidism N Lung Disease N COPD N Defects or Inherited Disease N Developmental or Behavioral Disorders N Breast Problem N Difficulty Swallowing N Anesthesia Complications N Meniere's disease N Anxiety Disorder N Muscle, Joint, or Bone Problems N Vision or Eye Problems N Arthritis N Polyps N Infertility N Cancer N Varicosities N Stroke N Endometriosis N Bladder or Kidney Problems N High Cholesterol Y Liver Disease N Fibromyalgia N Headaches N Kidney Disease N Allergies/Hayfever N Heart Problems N Ear or Hearing Problems N Hospitalizations N Thyroid Problems N GI Problems N ADD/ADHD N Skin Problems N Eating Disorder N Anemia N Constipation N Mental Illness N Ovarian Cancer N Diabetes N Bedwetting N Seizures/Epilepsy N Tuberculosis N Eczema N Diverticulitis N Abuse/Domestic Violence N Asthma N Reflux/GERD N Hepatitis N Heart Disease N Pulmonary Embolism N Pre-Eclampsia N Hypertension Y Chronic Ear Infections N Osteoporosis N Chicken Pox N Autism Spectrum Disorder (ASD) N Thrombophilias N Gynecological HistoryNo gynecological history recorded. Obstetrics History GPAL:G 0 P 0 0 0 0 Immunizations Vaccine Type Date Status Note Provider Nam e and Address Organization Details Recorded Time Influenza, split virus, trivalent, preservative 3 completed Mahsa palacio [facility] 04/11/2024 15:21:32 Influenza, split virus, trivalent, preservative 3 completed SHANTA palacio [facility] 01/05/2024 10:41:10 Influenza, split virus, trivalent, preservative 5 completed SHANTA palacio, [facility] 01/05/2024 10:41:10 pneumococcal polysaccharide PPV23 5 completed Not Available [facility] 05/08/2023 02:33:54 Novel [id number] 3 completed Not Available [facility] 05/08/2023 02:33:55 COVID-19, mRNA, LNP-S, PF, 100 mcg/0.5mL dose or 50 mcg/0.25mL dose 1 completed SHANTA palacio, [facility] 01/05/2024 10:41:10 COVID-19, mRNA, LNP-S, PF, 100 mcg/0.5mL dose or 50 mcg/0.25mL dose 1 [facility] 01/05/2024 10:41:10 pneumococcal polysaccharide PPV23 7 completed SHANTA SHELLEY [facility] 01/05/2024 10:41:10 influenza, unspecified formulation 5 completed [facility] 01/05/2024 10:41:10 Pneumococcal conjugate PCV 13 5 completed SHANTA SHELLEY [facility] 01/05/2024 10:41:10 Influenza, split virus, trivalent, preservative 2 completed SHANTA SHELLEY [facility] 01/05/2024 10:41:10 Influenza, split virus, trivalent, preservative 1 completed [facility] 01/05/2024 10:41:10 Influenza, split virus, trivalent, preservative 3 completed SHANTA palacio, [facility], [place] 01/05/2024 10:41:10 Influenza, split virus, trivalent, preservative 3 completed Mahsa Allananahi palacio [facility] LMigueLMarilee 04/11/2024 15:21:32 Influenza, split virus, trivalent, PF 4 completed Not Available [facility] 06/19/2025 14:55:52 Past Encounters Encounter ID Performer Location Encounter Start Date Encounter Closed Date Diagnosis/Indication Diagnosis SNOMED-CT Code Diagnosis ICD10 Code Diagnosis IMO Codes Diagnosis Note [id number] KACIE JUNG [facility] ([facility]) [address] [place] [id number] 06/25/2023 14:00:37 06/25/2023 16:24:59 Nausea, vomiting and diarrhea 4143418 R11.2 R19.7 [id number] MARII LAURENT [facility] ([facility]) [address] [place] [phone] 07/10/2023 14:31:07 07/10/2023 15:53:54 Candidiasis of skin 68083290 B37.[id number] [facility] ([facility]) [address] [place] [id number] 10/13/2023 16:12:18 10/13/2023 17:29:23 Acute sinusitis 15310413 J01.90 Start daily Claritin and start daily Flonase. Can take tylenol/ib uprofen as needed for pain and fevers. Will send Z-pack in for patient but patient instructed to not start Z-pack until 10/20/23 and only if not feeling better. Recommend increasing fluids and using cool mist humidifier at night. If worsening condition or no improvemen t in 7-10 days, return for further evaluation . Patient verbalizes understand ing. [id number] Bertram Rivera MD [facility] ([facility]) [address] [place] [address] [phone] 5 11/08/2023 12:36:46 11/08/2023 15:45:46 Bilateral lower leg edema [id number] R60.0 Essential hypertension [id number] I10 [id number] Bertram Rivera MD [facility] ([facility]) [address] [place] [address] [phone] 5 11/19/2023 09:41:45 11/19/2023 10:36:36 History of malignant neoplasm of breast [id number] Z85.3 Hypercholesterolemia 136 95243 E78.00 History of bilateral mastectomy [id number] Z90.13 history of breast cancer [id number] Arnav Alvarez MD [facility] ([facility]) [address] [place] [address] [phone] 5 12/02/2023 15:12:22 12/02/2023 16:02:51 Acute serous otitis media of left ear [id number] H65.02 The patient has evidence of an acute ear infection on the left. Start antibiotic s. Continue conservati ve measures for upper respirator y symptoms including fluids, rest, and over-the-c ounter medication to help with the symptoms. Follow-up if symptoms do not improve. [id number] Bertram Rivera MD [facility] ([facility]) [address] [place] [address] [phone] 5 01/05/2024 09:43:07 01/05/2024 12:11:23 Bilateral lower leg edema [id number] R60.0 [id number] [facility] [address] [place] [address] [phone] 5 04/11/2024 15:19:30 04/11/2024 17:35:36 Acute bacterial bronchitis [id number] J20.9 Discussed use of antibiotic . Take with food.May use Calvin's nasal inserts and also apply on chest. Push oral fluids.Speedy call with test results. Candidiasis of skin 4988 3006 B37.2 Refill of nystatin. [id number] MOODY SEGURA [facility] ([facility]) [address] [place] [address] [phone] 5 04/14/2024 09:39:17 04/14/2024 10:50:19 Acute bacterial bronchitis 345005513 J20.9 Lab test was positive for parainflue nza and H. Influenzae . Discussed with patient the parainflue nza is a virus that will run it's course. Continue otc supportive treatment. Continue the antibiotic to cover the H. Influenzae . [id number] ANAIS RAMOS PA-C [facility] ([facility]) [address] [place] [address] [phone] 5 05/01/2024 17:36:01 05/01/2024 18:45:42 Acute sinusitis 02250832 J01.90 [id number] MOODY SEGURA [facility] ([facility]) [address] [place] [address] [phone] 5 05/24/2024 12:12:45 05/24/2024 13:17:29 Acute urinary tract infection [id number] N39.0 UA results reviewed and discussed with pt. We will start antibiotic s. Pt will increase oral fluids and can use cranberry. Return to office with no improvemen t or any problems. Go to ER with severe worsening or severe problems.W e will obtain urine culture [id number] MOOYD SEGURA [facility] ([facility]) [address] [place] [address] [phone] 5 06/13/2024 15:12:19 06/14/2024 13:34:37 Dry skin dermatitis [id number] L85.3 Discussed applicatio n of steroid cream BID for next 1 week.Wear gloves when cleaning or using products around the house.Use thick emollient lotions to promote moisture. [id number] Bertram Rivera MD [facility] ([facility]) [address] [place] [address] [phone] 5 06/30/2024 08:23:30 07/03/2024 10:34:27 Adult health examination 061336320 Z00.00 [id number] Bertram Rivera MD [facility] ([facility]) [address] [place] [address] [phone] 5 07/07/2024 09:48:10 07/07/2024 10:32:46 Bilateral lower leg edema 610005829 R60.0 Hypercholesterolemia 136 16689 E78.00 [id number] Bertram Rivera MD [facility] ([facility]) [address] [place], [place] [phone] 01/05/2025 10:37:00 01/05/2025 11:38:49 Bilateral lower leg edema 051808561 R60.0 Candidiasis of skin 4988 3006 B37.2 Hypercholesterolemia 136 36623 E78.00 Essential hypertension 49371287 I10 [id number] MOODY CHUNG [facility] ([facility]) [address] [place] [address] [phone] 5 05/15/2025 10:14:48 05/15/2025 11:21:01 Low back pain 423676107 M54.59 [id number] Patient advised to take medication as directed here. Patient advised to rest initially and then slowly increase activity level. Monitor changes in symptoms such as numbness, tingling or weakness in legs, changes in bowel or bladder habits or worsening back pain. RTC with any new or worsening symptoms. [id number] Bertram Rivera MD [facility] ([facility]) [address] [place] [address] [phone] 5 06/19/2025 14:39:59 07/02/2025 09:28:22 Low back pain 602418866 M54.50 Pain of hip region 03502 002 M25.551 [id number] Disorder o f right sciatic nerve [id number] 34590 M54.31 [id number] Health Concerns Section Related Observation LastModified by Organization Detai ls LastModified Time None Recorded Concern Status LastModified by Organization Details LastModified Time None Recorded Advance Directives Directive None Recorded Payers Insurance Date Sequence Insurance Name Policy Number Policy Powell Covered Member ID Powell Member ID Guarantor Name 07/02/2025 1 [id number]A DVANTAGE - PPO) [id number] Vivienne F Ed[place] [id number] Vivienne F [place] Notes Date Note Type Note Provider Name and Address Organization Details Recorded Time 4 text/htm l 6 month Follow up on swelling in feet Bertram Rivera MD [address] [place] [address], [phone], [facility], [place] 07/07/2024 10:31:36 5 text/htm l Care Management - HyperlipidemiaReported by PatientHPIFor complications, patient reportsno heart attackandno stroke. Hypertension F/UReported by PatientHPIFor associated symptoms, patient reportsedemabut reportsno dizziness,no lightheadedness,no chest pain,no shortness of breath,no palpitations,no calf pain with exertion, andno headache. For medications, patient reportstaking medications as directedandno side effects from medication(pt does not check her blood pressure at home). For lifestyle, patient reportsregular exercise. EdemaReported by PatientHPIFor context, patient reportsprior history of edemabut reportsno prior history of deep vein thrombosisandno new medications. For location, patient reportsfeet. For quality, patient reportslegs swell equallyandimproves overnight. For severity, patient reportsmoderate. For duration, patient reportsintermittent. For onset/timing, patient reportsstarted ___ years ago. For associated symptoms, patient reportsno shortness of breath,no nocturia,no cough,no orthopnea,no chest pain, andno palpitations.ROS as noted in the HPI 6 month follow up Bertram Rivera MD [address] [place], [phone], [facility] 01/08/2025 06:45:38 5 text/htm l Back PainReported by PatientROS as noted in the HPI walk in patientpatient is here today for her chronic back pain, patient takes hydrocodone, celecoxib and gabapentin.Patient said that she made her back worse when she bent over to scrap picker something 3-4 days ago. MOODY CHUNG [address] [place], [phone], [facility] 05/15/2025 11:18:19 5 text/htm l Hip(s)Reported by PatientHPIFor associated symptoms, patient reportsinstability (at times)but reportsno weakness,no numbness,no tingling,no swelling, andno fever. For location, patient reportsright,deep, andbuttocks. For quality, patient reportsgnawing (pulling when she walks). For severity, patient reportsworseningandworst pain 05/20. For timing, patient reportsrecurrent. For duration, patient reportsacute. For aggravating factors, patient reportswalking. For alleviating factors, patient reportssitting,lying down, andheat. Pt states she was cleaning out her fridge about 2 weeks ago and when she bent over she heard a pop and she has had right hip/buttocks. Pt states it is a pulling sensation when she walks. Pt states when she sits down she is not in pain. Bertram Rivera MD [address] [place] [address], [phone], [facility] 06/30/2025 20:34:01 OBGyn Episode No OBEpisode recorded.
[2025-07-28 12:50] LABS: Glucose Urine UA Negative (Normal); Nitrate Urine Negative (Negative); Specific Gravity, Urine 1.017 (1.005-1.030)
[2025-07-28 13:12] LABS: Hematocrit 39.7 % (36-47); Hemoglobin 13.20 g/dL (11.27-16.99); Mean Corpuscular HGB Conc 33.2 g/dL (30-55); Mean Corpuscular Hemoglobin 30.2 pg (27-33); Mean Corpuscular Volume 90.8 fl (85-98); Nucleated Red Blood Cells % 0 %; Platelet Count 207 10^3/cmm (157-399); Red Blood Count 4.37 10^6/uL (3.85-5.65); White Blood Count 8.54 10^3/uL (3.29-11.43)
[2025-07-28 13:26] LABS: ABG PCO2 39.5 mmHg (35-45); ABG PH Result 7.47 (7.35-7.45); Alveolar-Arterial Oxygen Gradi 4.7 mmHg (5-10); Arterial Blood Gas Hematocrit 41.6 % (37-47); Blood Gas Allen Test Pos; Blood Gas Operator Identificat WALCI; Blood Gas Sample Site Radial, left; Blood Gas Sample Type Arterial; Carboxyhemoglobin 1.1 %THgb (0.4-20.1); Glucose Level-ABG 126.0 mg/dL (70-115); HCO3 ABG 28.7 mmol/L (22-26); Ionized Calcium Level - ABG 1.2 mmol/L (1.1-1.4); Methemoglobin 1.0 % (0.4-1.5); Oxygen Saturation ABG 93.5; PO2 ABG 62.8 mmHg (80.0-100.0); PO2 FiO2 Ratio Arterial Blood 299; Potassium Level - ABG 3.5 mmol/L (3.5-5.0); Sodium Level - ABG 138.0 mmol/L (131-143)
[2025-07-28 13:36] LABS: Lactic Sepsis W/Reflex 1.0 mmol/L (0.5-2.2)
[2025-07-28 13:38] LABS: Troponin(5th) Baseline 11 ng/L (0-10)
--- NOTE | 2025-07-28 13:45 | ED_ITS ---
HPI - Altered Mental Status 2 General: Chief Complaint: Altered Mental Status Stated Complaint: CP SOB Confused Time Seen by Provider: 07/28/25 13:41 History of Present Illness: 84-year-old female who presents emergenc y room with confusion and shortness of breath. Family says she just seems a little bit confused. On my exam she is completely alert and oriented. No focal complaints and she is mainly grumpy at her family that they brought her in. She has had some cough. No abdominal pain. No dysuria. Related Data Home Medications ?Medication ?Instructions ?Recorded ?Confirmed aspirin 81 mg tablet,delayed 81 mg PO DAILY 12/25/19 0 04/18/25 release (Aspir-) simvastatin 20 mg tablet 20 mg PO DAILY 12/25/1907/05 vitamin E 200 unit capsule 200 unit PO DAILY 12/25/19 04/18/25 Previous Rx's ?Medication ?Instructions ?Recorded azithromycin 250 mg tablet See Rx Instructions PO .COM PLEX #6 02/28/23 (Zithromax) tabs prednisone 20 mg tablet 20 mg PO BID 5 days #10 tabs 02/28/23 gabapentin 400 mg capsule See Rx Instructions .Route 1 .COMPLEX #450 caps hydrocodone 5 mg-acetaminophen 325 1 tab PO BID PRN pa in 30 days #60 /15/25 mg tablet tabs hydrocodone 5 mg-acetaminophen 325 1 tab PO BID PRN pa in 30 days #60 10/15/25 mg tablet tabs hydrocodone 5 mg-acetaminophen 325 1 tab PO BID PRN pa in 30 days #60 07/25/25 mg tablet tabs cephalexin 500 mg tablet 500 mg PO TID 7 days #21 tab s 07/28/25 ondansetron 4 mg disintegrating 4 mg PO Q8H PRN nausea and 07/28/25 tablet vomiting #10 tabs Allergies Allergy/AdvReac Type Severity Reaction Status Date / Time No Known Allergies Allergy Verified 04/18/25 11:46 Review of Systems 2 Narrative: Constitutional symptoms: Negative except as documented in HPI. Skin symptoms: Negative except as documented in HPI. Eye symptoms: Negative except as documented in HPI. ENMT symptoms: Negative except as documented in HPI. Respiratory symptoms: Negative except as documented in HPI. Cardiovascular symptoms: Negative except as documented in HPI. Gastrointestinal symptoms: Negative except as documented in HPI. Genitourinary symptoms: Negative except as documented in HPI. Musculoskeletal symptoms: Negative except as documented in HPI. Neurologic symptoms: Negative except as documented in HPI. Psychiatric symptoms: Negative except as documented in HPI. Endocrine symptoms: Negative except as documented in HPI. PFSH ED 2 PFSH: Family History Other CAD (coronary artery disease) Cancer Hypertension Stroke Denies family history of Diabetes Social History Smoking and tobacco/nicotine status: former use of tobacco/nicotine (quit 1993) Quit status (tobacco/nicotine): has quit using Year quit tobacco: 1974 Alcohol intake: never Substance/Drug Use: never Physical Exam 2 Narrative: General: Alert, no acute distress. Skin: Warm, dry. Head: Normocephalic, atraumatic. Neck: Supple, trachea midline. Eye: Extraocular movements are intact. Ears, nose, mouth and throat: Tacky oral mucosa Cardiovascular: Regular, Normal peripheral perfusion. Respiratory: Lungs are clear to auscultation, respirations are non-labored, breath sounds are equal, Symmetrical chest wall expansion. Gastrointestinal: Soft, Nontender, Non distended Musculoskeletal: Normal ROM, no deformity. Neurological: Alert and oriented, No focal neurological deficit observed. Psychiatric: Cooperative, appropriate mood & affect. Course 2 Vital Signs: Vital signs: Vital Signs Temperature 98.1 F 07/28/25 12:20 Pulse Rate 87 07/28/25 12:20 Respiratory Rate 17 07/28/25 12:20 Blood Pressure 115/75 07/28/25 12:20 Pulse Oximetry 96 07/28/25 12:20 Oxygen Delivery Me thod Room Air 07/28/25 12:20 MDM - Altered Mental Status Medical Decision Making Medical decision making: Differential diagnosis including but not limited to and based on the above HPI, review of systems and physical exam: In this patient with altered mental status: Stroke. Hypoglycemia. Metabolic encephalopathy. Infections such as pneumonia, urinary tract infection, Covid-19, Influenza. Electrolyte abnormalities such as hypernatremia. Renal failure / uremia. Hepatic encephalopathy. Hypoxemia. Hypercapnic respiratory failure. Psychosis. Drug or alcohol intoxication. Medication overdose. Orders placed to evaluate differential diagnosis based on the above differential, HPI and physical exam CT head: Senescent changes. No acute intracranial process. No intracranial hemorrhage, no evidence of infarct. No evidence of acute fracture. This was reviewed and interpreted by myself the emergency room physician. I also reviewed the radiology report. Chest x-ray: No acute process. No infiltrate. No pneumothorax. This was reviewed and interpreted by myself the emergency room physician. I also reviewed the radiology report. Lab Review: Laboratory results were reviewed and interpreted by myself the emergency room physician. No leukocytosis. No anemia. No renal failure. Flu COVID and RSV are negative. Urinalysis has 15-20 whites with 1+ bacteria and positive leukocyte esterase I reviewed the patient's medical record. Reexamination: Patient remained stable. No increased work of breathing. No altered mental status. No focal motor deficits. Assessment and plan: Urinary tract infection Altered mental status Dehydration ? 1 L normal saline bolus and IV Rocephin in the emergency room. - Discharged home - Discussed plan with patient. Answered any questions. - Evaluation and treatment of this problem were appropriate in the emergency setting. Lab Data 07/28/25 12:58 07/28/25 12:58 Radiology Impressions Chest X-Ray 07/28/25 12:17 IMPRESSION: 1. No acute pulmonary finding. 2. Left basilar linear density. Finding could represent scarring or atelectasis. Head CT 07/28/25 13:48 IMPRESSION: 1. No acute intracranial finding. 2. Mucosal thickening in left maxillary sinus and sphenoidal sinuses. 3. Cortical atrophy is present. 4. Likely mild small-vessel ischemic changes. Laboratory Results WBC 8.54 10^3/uL (3.29-11.43) 07/28/25 12:58 RBC 4.37 10^6/uL (3.85-5.65) 07/28/25 12:58 Hgb 13.20 g/dL (11.27-16.99) 07/28/25 12:58 Hct 39.7 % (36-47) 07/28/25 12:58 MCV 90.8 fl (85-98) 07/28/25 12:58 MCH 30.2 pg (27-33) 07/28/25 12:58 MCHC 33.2 g/dL (30-55) 07/28/25 12:58 RDW 13.3 % (12.1-15.1) 07/28/25 12:58 Plt Count 207 10^3/cmm (157-399) 07/28/25 12:58 MPV 9.6 fL (7.4-10.4) 07/28/25 12:58 Neut % (Auto) 78.1 % 07/28/25 12:58 Lymph % (Auto) 11.1 % 07/28/25 12:58 [place] % (Auto) 10.4 % 07/28/25 12:58 Eos % (Auto) 0.1 % 07/28/25 12:58 Baso % (Auto) 0.1 % 07/28/25 12:58 Neut # (Auto) 6.66 10^3/uL (1.8-7.7) 07/28/25 12:58 Lymph # (Auto) 1.0 10^3/uL (0.8-4.8) 07/28/25 12:58 [place] # (Auto) 0.9 10^3/uL (0.2-0.9) 07/28/25 12:58 Eos # (Auto) 0.0 10^3/uL (0.0-0.8) 07/28/25 12:58 Baso # (Auto) 0.0 10^3/uL (0.0-0.1) 07/28/25 12:58 Nucleated RBC % (auto) 0 % 07/28/25 12:58 Nucleated RBCs # 0.0 /100WBC 07/28/25 12:58 Specimen Type Arterial 07/28/25 13:15 Sample Site Radial, left 07/28/25 13:15 ABG pH 7.47 (7.35-7.45) H 07/28/25 13:15 ABG pCO2 39.5 mmHg (35-45) 07/28/25 13:15 ABG pO2 62.8 mmHg (80.0-100.0) L 07/28/25 13:15 ABG PO2/FiO2 Ratio 299 07/28/25 13:15 ABG HCO3 28.7 mmol/L (22-26) H 07/28/25 13:15 ABG O2 Saturation 93.5 07/28/25 13:15 ABG Base Excess 4.7 mmol/L (-2.0-2.0) H 07/28/25 13:15 Greg Test Pos 07/28/25 13:15 A-a O2 Gradient 4.7 mmHg (5-10) L 07/28/25 13:15 Hematocrit 41.6 % (37-47) 07/28/25 13:15 Hgb O2 Saturation 91.6 % (95-100) L 07/28/25 13:15 Carboxyhemoglobin 1.1 %THgb (0.4-20.1) 07/28/25 13:15 Methemoglobin 1.0 % (0.4-1.5) 07/28/25 13:15 Total Hemoglobin 13.6 g/dL (12-16) 07/28/25 13:15 Sodium 138.0 mmol/L (131-143) 07/28/25 13:15 Potassium 3.5 mmol/L (3.5-5.0) 07/28/25 13:15 Glucose 126.0 mg/dL (70-115) H 07/28/25 13:15 Ionized Calcium 1.2 mmol/L (1.1-1.4) 07/28/25 13:15 O2 Delivery Device Room air 07/28/25 13:15 FiO2 21.0 % 07/28/25 13:15 [employer] [place] 07/28/25 13:15 Sodium 138 mmol/L (136-145) 07/28/25 12:58 Potassium 3.8 mmol/L (3.5-5.1) 07/28/25 12:58 Chloride 98 mmol/L (98-107) 07/28/25 12:58 Carbon Dioxide 27 mmol/L (22-29) 07/28/25 12:58 Anion Gap 16.8 (5-19) 07/28/25 12:58 BUN 19 mg/dL (8-23) 07/28/25 12:58 Creatinine 0.8 mg/dL (0.5-0.9) 07/28/25 12:58 GFR Calculation Not Reportable 07/28/25 12:58 Glucose 122 mg/dL (65-115) H 07/28/25 12:58 Calculated Osmolality 290 mOsm/kg (285-295) 07/28/25 12:58 Lactic Acid 1.0 mmol/L (0.5-2.2) 07/28/25 12:58 Calcium 9.8 mg/dL (8.5-10.5) 07/28/25 12:58 Total Bilirubin 0.9 mg/dL (0.15-1.2) 07/28/25 12:58 AST 22 U/L (0-32) 07/28/25 12:58 ALT 15 U/L (0-33) 07/28/25 12:58 Alkaline Phosphatase 114 U/L (35-105) H 07/28/25 12:58 Troponin T Baseline 11 ng/L (0-10) H 07/28/25 12:58 NT-Pro-B Natriuret Pep 355 pg/mL (0-450) 07/28/25 12:58 Total Protein 6.6 g/dL (6.6-8.7) 07/28/25 12:58 Albumin 4.2 g/dL (3.5-5.2) 07/28/25 12:58 Globulin 2.4 g/dL (1.3-4.6) 07/28/25 12:58 Urine Color Yellow (Yellow) 07/28/25 12:41 Urine Appearance Cloudy (CLEAR) A 07/28/25 12:41 Urine pH 7.0 (5-7) 07/28/25 12:41 Ur Specific [place] 1.017 (1.005-1.030) 07/28/25 12:41 Urine Protein Negative (Negative) 07/28/25 12:41 Urine Glucose (UA) Negative (Normal) 07/28/25 12:41 Urine Ketones Negative (Negative) 07/28/25 12:41 Urine Blood Negative (Negative) 07/28/25 12:41 Urine Nitrate Negative (Negative) 07/28/25 12:41 Urine Bilirubin Negative (Negative) 07/28/25 12:41 Urine Urobilinogen 1.0 mg/dL (Negative) 07/28/25 12:41 Ur Leukocyte Esterase 2+ (Negative) A 07/28/25 12:41 Urine RBC 0-4 /hpf (0-2) H 07/28/25 12:41 Urine WBC 15-25 /hpf (0-5) H 07/28/25 12:41 Ur Squamous Epith Cells 5-10 /hpf (0-5) H 07/28/25 12:41 Amorphous Sediment Trace /hpf 07/28/25 12:41 Urine Bacteria 1+ /hpf (NONE) H 07/28/25 12:41 Hyaline Casts 0-4 /lpf H 07/28/25 12:41 Coarse Granular Casts 0-4 /lpf H 07/28/25 12:41 Urine Mucus Trace /hpf 07/28/25 12:41 Influenza A (PCR) Negative (Negative) 07/28/25 13:50 Influenza Type B (PCR) Negative (Negative) 07/28/25 13:50 RSV (PCR) Negative (Negative) 07/28/25 13:50 SARS-CoV-2 (PCR) Negative (Negative) 07/28/25 13:50 All radiology interpretation(s) finalized by discharge Discharge Plan Discharge Patient Disposition: Home Clinical Impression: Urinary tract infection, Dehydration Condition: Stable Prescriptions: New cephalexin 500 mg tablet 500 mg PO TID 7 Days Qty: 21 0RF ondansetron 4 mg tablet,disintegrating 4 mg PO Q8H PRN (Reason: nausea and vomiting) Qty: 10 0RF No Action simvastatin 20 mg tablet 20 mg PO DAILY vitamin E 200 unit capsule 200 unit PO DAILY aspirin [Aspir-81] 81 mg tablet,delayed release (DR/EC) 81 mg PO DAILY azithromycin [Zithromax] 250 mg tablet See Rx Instructions PO .COMPLEX Qty: 6 0RF Rx Instructions: For 250 mg dose pack: take 500 mg today (day 1), then 250 mg for 4 days (days 2-5) PO prednisone 20 mg tablet 20 mg PO BID 5 Days Qty: 10 0RF hydrocodone-acetaminophen 5-325 mg tablet 1 tab PO BID PRN (Reason: pain) 30 Days Qty: 60 0RF Rx Instructions: Fill Now hydrocodone-acetaminophen 5-325 mg tablet 1 tab PO BID PRN (Reason: pain) 30 Days Qty: 60 0RF Rx Instructions: Do Not Fill Until 08/24/25 hydrocodone-acetaminophen 5-325 mg tablet 1 tab PO BID PRN (Reason: pain) 30 Days Qty: 60 0RF Rx Instructions: Do not fill until 09/21/25 gabapentin 400 mg capsule See Rx Instructions .ROUTE .COMPLEX Qty: 450 3RF Dose Instruction: TAKE 3 CAPSULES BY MOUTH TWICE DAILY FOR pain *ok TO take TWO EVERY MORNING and THREE at night* Rx Instructions: TAKE 3 CAPSULES BY MOUTH TWICE DAILY FOR pain *ok TO take TWO EVERY MORNING and THREE at night* Discharge Orders: Discharge ED (Routine); Ordered 07/28/25 Ordered By: Regine Rivas Referrals: George Walker MD [Primary Care Provider, [facility]] Discharge Diet: Usual diet Discharge Activity: Increase activity as tolerated Patient Instructions: Altered Mental Status (ED), Urinary Tract Infection in Older Adults (ED), Opioid Safety, Pain Management, Patient Portal & Connie Instructions Activity Restrictions/Additional Instructions: Thank you for choosing [facility] for your healthcare needs today. You have been screened and evaluated and felt safe for discharge. Health conditions do change or evolve sometimes and as such it is important that you follow up with your Primary Doctor to be re checked, 3-5 days is a general good time frame for follow up. You are always welcome to return to the ED for re assessment if your symptoms are worsening or you have new concerns Print Language: Croatian Coding Level of Care Code ED Business Area Manager for Manuelito Roberto
[2025-07-28 13:46] LABS: Alanine Aminotransferase 15 U/L (0-33); Albumin Level 4.2 g/dL (3.5-5.2); Alkaline Phosphatase 114 U/L (35-105); Anion Gap 16.8 (5-19); Aspartate Amino Transferase 22 U/L (0-32); Blood Urea Nitrogen 19 mg/dL (8-23); Calcium 9.8 mg/dL (8.5-10.5); Carbon Dioxide 27 mmol/L (22-29); Chloride 98 mmol/L (98-107); Creatinine Clr Calc Pharmacy 66.2503; Globulin 2.4 g/dL (1.3-4.6); Glucose 122 mg/dL (65-115); NT Pro B Type Natriuretic Pept 355 pg/mL (0-450); Osmolality Calculated 290 mOsm/kg (285-295); Potassium 3.8 mmol/L (3.5-5.1); Sodium 138 mmol/L (136-145); Total Protein 6.6 g/dL (6.6-8.7)
--- NOTE | 2025-07-28 13:48 | CTR_ITS ---
PROCEDURE INFORMATION: Exam: CT Head Without Contrast Exam date and time: 07/28/2025 1:52 PM Age: 84 years old Clinical indication: Altered mental status/memory loss; Confusion or disorientation TECHNIQUE: Imaging protocol: Computed tomography of the head without contrast. Radiation optimization: All CT scans at this facility use at least one of these dose optimization techniques: automated exposure control; mA and/or kV adjustment per patient size (includes targeted exams where dose is matched to clinical indication); or iterative reconstruction. COMPARISON: No relevant prior studies available. RADIATION DOSE METRICS: Total DLP (mGy-cm): 1018.78 FINDINGS: Brain: Chronic right cerebellar ischemic infarct. Cortical atrophy is present. No midline shift or acute intracranial hemorrhage. Periventricular hypodensities are nonspecific and likely representing mild small vessel ischemic changes. Cerebral ventricles: No ventriculomegaly. Paranasal sinuses: Mucosal thickening in left maxillary sinus and sphenoidal sinuses. Mastoid air cells: Visualized mastoid air cells are well aerated. Bones: Unremarkable. No acute fracture. Soft tissues: Unremarkable. CT/CT head wo con* [id number] IMPRESSION: 1. No acute intracranial finding. 2. Mucosal thickening in left maxillary sinus and sphenoidal sinuses. 3. Cortical atrophy is present. 4. Likely mild small-vessel ischemic changes.
[2025-07-28 14:29] LABS: Respiratory Syncytial Virus Ce NEGATIVE (Negative); SARS-CoV-2 PCR NEGATIVE (Negative)
[2025-07-28] MEDS: cefTRIAXone 1,000 mg SDV 1000 MG IVP (14:42)
[2025-07-28] MEDS: ondansetron 2 mg/ML SDV 2 mL 4 MG IVP (14:50)
--- NOTE | 2025-07-28 15:31 | ECG_ITS ---
[facility] Date: 2025-07[facility]28 Pat Name: Vivienne Bishop Department: Room: Gender: Female Registered Respiratory Technician: : 1940 Requested By: Regine Whelan Order Number: [id number] Fredrick MD: Arsalan Orellana M.D. Measurements Intervals [place] Rate: 89 P: 66 GA: 202 QRS: 87 QRSD: 91 T: 75 QT: 354 QTc: 431 Interpretive Statements SINUS RHYTHM LOW QRS VOLTAGE IN PRECORDIAL LEADS [QRS DEFLECTION < 1.0 mV IN CHEST LEADS] Compared to ECG 07/28/2025 12:19:19 ST (T wave) deviation no longer present Electronically Signed On 07-31-2025 19:49:23 CDT by Arsalan Orellana M.D. [email or web address]
[2025-07-28 15:51] VITALS: BP 114/67; PULSE 86; RESP 15; O2SAT 94
== END 2025-07-28 15:53 | disposition home or self-care (01) ==
PROVIDERS: Emergency Provider Emergency Medicine; PCP Family Medicine
DX: N39.0 Urinary tract infection, site not specified (principal); E86.0 Dehydration; Z11.52 Encounter for screening for COVID-19; Z87.891 Personal history of nicotine dependence
CPT/HCPCS: 36415; 36600; 70450; 71045; 80051; 80053; 81001; 82330; 82805; 83605; 83880; 84484; 85025; 87040; 87086; 87637; 93005; 96374; 96375; 99285; J0696; J2405; J7030; J9999

== ENCOUNTER 2025-08-03 16:02 | Inpatient (IN) | payer MEDICARE, SELFPAY ==
[2025-08-03 16:07] VITALS: BP 127/89; PULSE 87; RESP 18; TEMP 36.8; O2SAT 96
--- OUTSIDE RECORDS SUMMARY | 2025-08-03 16:07 | XMS_ITS | Data Portability ---
Author Organization [facility] Address [address] [place] [address] [address] [place] [address] Care Team Providers Care Van Driver Helper Name Role Phone BERTRAM RIVERA Primary Care Provider Unavaila ble Assessment No assessment recorded. Plan of Treatment Reminders Order Date Submit Date Provider Last Modified By Organization Details Last Modified Time Details Appointments RECHECK 2024 08:20A Nga Rivera MD Not available Not available Not available Lab CMP, serum or plasma 2024 025 BERKELEY [facility], [address], [place], [address], 01/05/2025 13:46:29 CMP, serum or plasma [email or web address] [place], [place] [address], [address], [address], [place], [address], 12/28/2024 19:46:53 lipid panel, blood 2023 024 BERKELEY [facility], [address], [address], [place], [address], 06/30/2024 10:08:47 CBC 2023 024 [facility], [address], [place], [address], 06/30/2024 09:36:00 Referral physical therapist referral 2024 025 [email or web address] [facility], [address] [place], [address], 07/05/2025 17:05:33 Procedures None recorded. Surgeries None recorded. Imaging XR, lumbosacr al spine, 2 or 3 view [email or web address] [facility], [address] [place], [address], 07/02/2025 09:28:22 Medication Orders cyclobenz aprine 5 mg tablet 2024 025 [email or web address] [facility], [address] [place] [address], [address], 06/19/2025 18:41:19 ketorolac 30 mg/mL (1 mL) injection solution 2024 025 [email or web address] Not available 05/15/2025 11:02:28 cyclobenz aprine 5 mg tablet 2024 025 [facility], [place], [address], 05/15/2025 12:26:36 nystatin 100,000 unit/gram topical powder 2024 025 [facility], [address] [place] [address], [address], 01/05/2025 17:46:42 Patient TargetsNo targets recorded. Patient Instructions Encounter Date Encounter Id Patient Instructions Last Modified By Organization Details Last Modified Time 05/15/2025 [id number] back pain: care instructions [email or web address] Not available 05/15/2025 10:51:14 Reason for Referral Physical Therapist Referral for Disorder of right sciatic nerve Referring Physician: Bertram Rivera, Family Medicine, Encounter Date: 06/19/2025 Results Created Date Observation Date Name Description Value Unit Range Abnormal Flag Note LastModifiedBy Organization Detail LastModifiedTime 06/30/20 24 06/30/2024 CBC WBC 4.1 x10 4.0-10 .5 Not Available [facility] [address], [place], [address], 06/30/2024 09:36:00 06/30/20 24 06/30/2024 CBC RBC 4.34 x10 3.50-5 .50 Not Available [facility] [address], [place], [address], 06/30/2024 09:36:00 06/30/20 24 06/30/2024 CBC HGB 13.5 g/dL 12.0-1 6.0 Not Available [facility] [address], [place], [address], 06/30/2024 09:36:00 06/30/20 24 06/30/2024 CBC HCT 39.8 % 37.0-4 7.0 Not Available [facility] [address], [place], [address], 06/30/2024 09:36:00 06/30/20 24 06/30/2024 CBC MCV 91.7 fL 80.0-9 9.9 Not Available [facility] [address], [place], [address], 06/30/2024 09:36:00 06/30/20 24 06/30/2024 CBC MCH 31.1 pg 27.0-3 2.0 Not Available [facility] [address] [facility] [address], [place], [address], 06/30/2024 09:36:00 06/30/20 24 06/30/2024 CBC MCHC 33.9 g/dL 32.0-3 6.0 Not Available [facility] [address], [place], [address], 06/30/2024 09:36:00 06/30/20 24 06/30/2024 CBC RDW 13.7 % 11.5-1 4.5 Not Available [facility] [address] [facility] 1, [place], [address], 06/30/2024 09:36:00 06/30/20 24 06/30/2024 CBC plt 209.5 x10 140.0- 451.0 Not Available [facility] [address] [facility] [address] [facility] 1, [place], [address], 06/30/2024 09:36:00 06/30/20 24 06/30/2024 CBC lymphocytes % 29.7 % 20.0-5 0.0 Not Available [facility] [address] [facility] [address] [facility] 1, [place], [address], 06/30/2024 09:36:00 06/30/20 24 06/30/2024 CBC granulcytes % 52.4 % 30.0-7 0.0 Not Available [facility] [address] [facility] 1, [place], [address], 06/30/2024 09:36:00 06/30/20 24 06/30/2024 CBC monocytes % 13.4 % 2.0-16 .0 Not Available [facility] [address] [facility] 1, [place], [address], 06/30/2024 09:36:00 06/30/20 24 06/30/2024 CBC granulcytes# 2.2 x10 Not Sandee ilable [facility] [address] [facility] [address] [facility] 1, [place], [address], 06/30/2024 09:36:00 06/30/20 24 06/30/2024 CBC lymphocytes # 1.2 x10 Not Available [facility] [address] [facility] [address] 1, [place], [address], 06/30/2024 09:36:00 06/30/20 24 06/30/2024 CBC monocytes # 0.6 x10 Not Avai lable [facility] [address] [facility] 1, [place], [address], 06/30/2024 09:36:00 06/30/20 24 06/30/2024 LIPID PROFI LE (FEMA LE) cholesterol 166.0 mg/dL 0.0-20 0.0 Not Available [facility] [address] [facility] 1, [place], [address], 06/30/2024 10:08:47 06/30/20 24 06/30/2024 LIPID PROFI LE (FEMA LE) trig 89.0 mg/dL 0.0-15 0.0 Not Available [facility] [address] [facility] 1, [place], [address], 06/30/2024 10:08:47 06/30/20 24 06/30/2024 LIPID PROFI LE (FEMA LE) HDL - direct 69.0 mg/dL >40.0 Not Available [facility] [address] [facility] 1, [place], [address], 06/30/2024 10:08:47 06/30/20 24 06/30/2024 LIPID PROFI LE (FEMA LE) VLDL - direct 17.8 mg/dL Not Available [facility] [address] [facility] 1, [place], [address], 06/30/2024 10:08:47 06/30/20 24 06/30/2024 LIPID PROFI LE (FEMA LE) LDL - direct 79.2 mg/dL 0.0-13 0.0 Not Available [facility] [address] [facility] 1, [place], [address], 06/30/2024 10:08:47 01/06/20 25 01/05/2025 CMP (FEMA LE) glucose 101.0 mg/dL 60.0-9 9.0 high Not Available [facility] [address] [address], [place], [address], 01/05/2025 13:46:29 01/06/20 25 01/05/2025 CMP (FEMA LE) BUN (blood urea nitrogen) 22.0 mg/dL 10.0-2 6.0 Not Available [facility] [address] [address], [place], [address], 01/05/2025 13:46:29 01/06/20 25 01/05/2025 CMP (FEMA LE) creatinine (serum) 0.9 mg/dL 0.4-1. 5 Not Available [facility] [address] [address], [place], [address], 01/05/2025 13:46:29 01/06/20 25 01/05/2025 CMP (FEMA LE) BUN/creatini ne ratio 24.44 ratio Not Available [facility] [address] [address], [place], [address], 01/05/2025 13:46:29 01/06/20 25 01/05/2025 CMP (FEMA LE) eGFR calculated 63.6 Not Available [facility] [address] [address], [place], [address], 01/05/2025 13:46:29 01/06/20 25 01/05/2025 CMP (FEMA LE) total protein 7.5 g/dL 6.0-8. 5 Not Available [facility] [address] [address], [place], [address], 01/05/2025 13:46:29 01/06/20 25 01/05/2025 CMP (FEMA LE) total bilirubin 0.8 mg/dL 0.2-1. 3 Not Available [facility] [address] [facility] [address] [facility] 1, [place], [address], 01/05/2025 13:46:29 01/06/20 25 01/05/2025 CMP (FEMA LE) albumin 4.3 g/dL 3.5-5. 5 Not Available [facility] [address] [facility], [place], [address], 01/05/2025 13:46:29 01/06/20 25 01/05/2025 CMP (FEMA LE) globulin 3.2 calc Not Available [facility] [address] [facility] 1, [place], [address], 01/05/2025 13:46:29 01/06/20 25 01/05/2025 CMP (FEMA LE) AST (SGOT) 30.0 U/L 0.0-46 .0 Not Available [facility] [address] [facility] 1, [place], [address], 01/05/2025 13:46:29 01/06/20 25 01/05/2025 CMP (FEMA LE) altv (SGPT) 21.0 U/L 13.0-6 9.0 normal Not Available [facility] [address] [facility] [address], [place], [address], 01/05/2025 13:46:29 01/06/20 25 01/05/2025 CMP (FEMA LE) A/G ratio 1.3 ratio Not Available [facility] [address] [facility] [address], [place], [address], 01/05/2025 13:46:29 01/06/20 25 01/05/2025 CMP (FEMA LE) ALP phos 99.0 U/L 30.0-1 40.0 normal Not Available [facility] [address] [facility] 1, [place], [address], 01/05/2025 13:46:29 01/06/20 25 01/05/2025 CMP (FEMA LE) calcium 9.6 mg/dL 8.4-10 .5 Not Available [facility] [address] [facility] 1, [place], [address], 01/05/2025 13:46:29 01/06/20 25 01/05/2025 CMP (FEMA LE) sodium 137.0 mmol/ L 136.0- 145.0 Not Available [facility] [address] [facility] 1, [place], [address], 01/05/2025 13:46:29 01/06/20 25 01/05/2025 CMP (FEMA LE) potassium 4.0 mmol/ L 3.5-5. 1 Not Available [facility] [address] [facility] 1, [place], [address], 01/05/2025 13:46:29 01/06/20 25 01/05/2025 CMP (FEMA LE) chloride 100.0 mmol/ L 98.0-1 10.0 normal Not Available [facility] [address] [facility] 1, [place], [address], 01/05/2025 13:46:29 01/06/20 25 01/05/2025 CMP (FEMA LE) C02 28.0 mmol/ L 22.0-3 1.0 Not Available [facility] [address] [facility] 1, [place], [address], 01/05/2025 13:46:29 01/06/20 25 01/05/2025 CMP (FEMA LE) anion gap 9.0 calc Not Available [facility] [address] [facility] 1, [place], [address], 01/05/2025 13:46:29 01/06/20 25 01/05/2025 CMP (FEMA LE) osmolality 286.4 calc Not Available [facility] [address], [place], [address], 01/05/2025 13:46:29 06/21/20 25 06/19/2025 XR, lumbo sacra l spine , 2 or 3 view No observ ation record ed. [facility] [address] [facility] [address], [place], [address], 07/09/2025 18:35:00 Result Notes None recorded. Problems Name Problem SNOMED Code Status Onset Date Resolution Date Notes Provider Name and Address Organization Details Recorded Time Acute bronchit is 22094216 Completed 201802/20/2019 ACUTE BRONCHIT IS, UNSPECIF IED ORGANISM - Status is Inactive ; Recorded 02/21/20 19 8:55AM by Roxann Humphrey CMT, Gio on/Adden dum; Promoted ; acuity set as *; Not Available [facility] 03:07:23 Hemorrho idectomy Completed 201802/20/2019 Hemorrho idectomy - Status is Inactive ; 02/21/20 19 8:56AM by Roxann Humphrey CMT, Annotati on/Adden dum; Promoted ; acuity set as *; Not Available [facility] 3 03:07:23 Cholecys tectomy planned [id number] Completed 201802/20/2019 Cholecys tectomy - Status is Inactive ; 02/21/20 19 8:56AM by Roxann Humphrey CMT, Annotati on/Adden dum; Promoted ; acuity set as *; Not Available [facility] 3 03:07:23 History of malignan t neoplasm of breast 302384664 Active 2022 HISTORY OF BREAST CANCER; 12/16/19 23 4:24PM by Callie Walker, Office Visit; Promoted ; acuity set as *; ELISA You - [facility] L[facility]CM[facility] 5 11:03:08 Herpes zoster [id number] Completed 202201/05/2025 Herpes Zoster; 12/16/19 23 4:24PM by Callie Walker, Office Visit; Promoted ; acuity set as *; SHANTA SHELLEY [facility] 5 11:03:03 Bilatera l lower leg edema 749556833 Active 2023 [facility] 5 11:02:58 Hypercho lesterol emia 39497476 Active 2023 [facility] 5 11:03:11 Candidia sis of skin 65172577 Active 2024 [facility] 5 11:28:19 [facility] hyperten elan 82221107 Active 2024 [facility] 5 11:29:28 Disorder of right sciatic nerve 83617457619 9102 Active 2024 Bertram Rivera MD [address] [place] [address], [phone] [facility] 15:55:09 Problem Notes None recorded. Procedures Surgical History Date Name Laterality Status Provider Name and Address Organization Details Recorded Time hemorrhoidectomy completed SHANTA [facility] 01/05/2025 11:05:58 radical mastectomy completed [facility] 01/05/2025 11:06:38 Imaging Results None recorded. [...] completed Not Available Not Available Not Available [facility] 100,000 unit/gram topical powder APPLY TO THE [...] Updated DateTime 5 161.29 cm 43.2 kg/m2 353470. 91 g 20 /min 97.6 [degF] 70 /min 96 % 96 % 120/70 mm[Hg] SHANTA SHELLEY [facility] 5 11:12:14 Date Recorded Body height Body mass index (BMI) Body weight Oxygen saturation Oxygen saturation in Arterial blood by Pulse oximetry Heart rate Respiratory rate Body temperature Systolic And Diastolic Provider Name and Address Organization Details Last Updated DateTime 5 161.29 cm 44.1 kg/m2 214005. 87 g 96 % 96 % 71 /min 16 /min 98.2 [degF] 138/80 mm[Hg] Gabby Reyes [facility] 5 10:23:24 Date Recorded Body height Body mass index (BMI) Body weight Oxygen saturation Oxygen saturation in Arterial blood by Pulse oximetry Heart rate Respiratory rate Body temperature Systolic And Diastolic Provider Name and Address Organization Details Last Updated DateTime 5 161.29 cm 42.2 kg/m2 364225. 75 g 94 % 94 % 80 /min 18 /min 97.9 [degF] 118/64 mm[Hg] FADI RIVERA [facility] 15:40:56 Date Recorded Body height Body mass index (BMI) Body weight Respiratory rate Heart rate Oxygen saturation Oxygen saturation in Arterial blood by Pulse oximetry Body temperature Systolic And Diastolic Provider Name and Address Organization Details Last Updated DateTime 4 161.29 cm 44.5 kg/m2 098955. 05 g 18 /min 78 /min 97 % 97 % 97.6 [degF] 122/70 mm[Hg] SHANTAQUINCY SHELLEY [facility] L.L.CMigue 4 10:08:43 Social History Question Answer Notes LastModified by Organizat ion Details LastModified Time Tobacco Smoking Status Never Smoker SHANTAQUINCY OLIVERNan palacio [facility] 01/05/2024 10:45:27 Are You Blind Or [...] able to care for yourself independently? Yes Information not available 01/05/2025 Do you have difficulty dressing, bathing, grooming, or toileting? No Information not available 01/05/2025 Mental Status Question Answer Note LastModified by Organization D etails LastModified Time Do you have difficulty concentrating, remembering or making decisions? [place] [address] Information no t available 01/05/2025 Family History Nothing Reported Notes:CVA: Mother Son 1, Suman ghter 2, Cancer; father-prostate, Stroke; mother: Denied Medical History Condition Response Coronary Artery Disease N Gout N Other Y Kidney Stones N Blood Diseases N Hyperthyroidism N Blood Transfusion N Breast Cancer Y COPD N Depression N Lung Disease N Hypothyroidism N Defects or Inherited Disease N Developmental [...] Problems N GI Problems N ADD/ADHD N Eating Disorder N Skin Problems N Anemia N Constipation N Mental Illness N Diabetes N Ovarian Cancer N Bedwetting N Seizures/Epilepsy N Tuberculosis N Eczema N Abuse/Domestic Violence N Diverticulitis N Asthma N Reflux/GERD N Hepatitis N Heart Disease N Pulmonary Embolism N Chronic Ear Infections N Pre-Eclampsia N Hypertension Y Chicken Pox N Autism Spectrum Disorder (ASD) N Osteoporosis N Thrombophilias N Gynecological HistoryNo gynecological history recorded. Obstetrics History GPAL:G 0 P 0 0 0 0 Immunizations Vaccine Type Date Status Note Provider Nam e and Address Organization Details Recorded Time Influenza, split virus, trivalent, preservative 3 completed Mahsa palacio [facility] 04/11/2024 15:21:32 Influenza, split virus, trivalent, preservative 3 completed SHANTA palacio [facility] L.L.CMigue 01/05/2024 10:41:10 Influenza, split virus, trivalent, preservative 5 completed SHANTA palacio, [facility] 01/05/2024 10:41:10 pneumococcal polysaccharide PPV23 5 completed Not Available [facility] 05/08/2023 02:33:54 Novel [id number] 3 completed Not Available [facility] 05/08/2023 02:33:55 COVID-19, mRNA, LNP-S, PF, 100 mcg/0.5mL dose or 50 mcg/0.25mL dose 1 completed SHANTA palacio, [facility] 01/05/2024 10:41:10 COVID-19, mRNA, LNP-S, PF, 100 mcg/0.5mL dose or 50 mcg/0.25mL dose 1 [facility] 01/05/2024 10:41:10 pneumococcal polysaccharide PPV23 7 completed SHANTA SHELLEY [facility] 01/05/2024 10:41:10 influenza, unspecified formulation 5 completed [facility] 01/05/2024 10:41:10 Pneumococcal conjugate PCV 13 5 completed SHANTA SHELLEY [facility] 01/05/2024 10:41:10 Influenza, split virus, trivalent, preservative 2 completed SHANTA SHELLEY [facility] 01/05/2024 10:41:10 Influenza, split virus, trivalent, preservative 1 completed [facility] 01/05/2024 10:41:10 Influenza, split virus, trivalent, preservative 3 completed SHANTA palacio, [facility] [place] 01/05/2024 10:41:10 Influenza, split virus, trivalent, preservative 3 completed Mahsa Allananahi palacio [facility] LMigueLMarilee 04/11/2024 15:21:32 Influenza, split virus, trivalent, PF 4 completed Not Available [facility] 06/19/2025 14:55:52 Past Encounters Encounter ID Performer Location Encounter Start Date Encounter Closed Date Diagnosis/Indication Diagnosis SNOMED-CT Code Diagnosis ICD10 Code Diagnosis IMO Codes Diagnosis Note [id number] KACIE JUNG [facility] ([facility]) [address] [place] [phone] 5 06/25/2023 14:00:37 06/25/2023 16:24:59 Nausea, vomiting and diarrhea 0707977 R11.2 R19.7 [id number] MARII LAURENT [facility] ([facility]) [address] [place] [address] [phone] 5 07/10/2023 14:31:07 07/10/2023 15:53:54 Candidiasis of skin 23634080 B37.2 [id number] [facility] ([facility]) [address] [place] [address] [phone] 5 10/13/2023 16:12:18 10/13/2023 17:29:23 Acute sinusitis 01336611 J01.90 Start daily Claritin and start daily [...] further evaluation . Patient verbalizes understand ing. [id number] Bertram Rivera MD [facility] ([facility]) [address] [place] [address] [phone] 5 11/08/2023 12:36:46 11/08/2023 15:45:46 Bilateral lower leg edema 552112134 R60.0 Essential hypertension 53506843 I10 [id number] Bertram Rivera MD [facility] ([facility]) [address] [place] [address] [id number] 11/19/2023 09:41:45 11/19/2023 10:36:36 History of malignant neoplasm of breast 262911488 Z85.3 Hypercholesterolemia 136 26417 E78.00 History of bilateral mastectomy 770080357 Z90.13 history of breast cancer [id number] Arnav Alvarez MD [facility] ([facility]) [address] [place] [address] [id number] 5 12/02/2023 15:12:22 12/02/2023 16:02:51 Acute serous otitis media of left ear 4649624908 725522 H65.02 The patient has evidence of an acute ear infection on the left. Start antibiotic s. Continue conservati ve measures for upper respirator y symptoms including fluids, rest, and over-the-c ounter medication to help with the symptoms. Follow-up if symptoms do not improve. [id number] Bertram Rivera MD [facility] ([facility]) [address] [place] [address] [id number] 5 01/05/2024 09:43:07 01/05/2024 12:11:23 Bilateral lower leg edema 972340514 R60.0 [id number] [facility] [address] [place] [address] [phone] 5 04/11/2024 15:19:30 04/11/2024 17:35:36 Acute bacterial bronchitis 181360772 J20.9 Discussed use of antibiotic . Take with food.May use Calvin's nasal inserts and also apply on chest. Push oral fluids.Speedy call with test results. Candidiasis of skin 4988 3006 B37.2 Refill of nystatin. [id number] MOODY SEGURA [facility] ([facility]) [address] [place] [address] [id number] 5 04/14/2024 09:39:17 04/14/2024 10:50:19 Acute bacterial bronchitis 466043367 J20.9 Lab test was positive for parainflue nza and H. Influenzae . Discussed with patient the parainflue nza is a virus that will run it's course. Continue otc supportive treatment. Continue the antibiotic to cover the H. Influenzae . [id number] ANAIS RAMOS PA-C [facility] ([facility]) [address] [place] [address] [id number] 5 05/01/2024 17:36:01 05/01/2024 18:45:42 Acute sinusitis 98918744 J01.90 [id number] MOODY SEGURA [facility] ([facility]) [address] [place] [address] [id number] 05/24/2024 12:12:45 05/24/2024 13:17:29 Acute urinary tract infection 458693361 N39.0 UA results reviewed and discussed with pt. We will start antibiotic s. Pt will increase oral fluids and can use cranberry. Return to office with no improvemen t or any problems. Go to ER with severe worsening or severe problems.W e will obtain urine culture [id number] MOODY SEGURA [facility] ([facility]) [address] [place] [address] [id number] 5 06/13/2024 15:12:19 06/14/2024 13:34:37 Dry skin dermatitis 128347852 L85.3 Discussed applicatio n of steroid cream BID for next 1 week.Wear gloves when cleaning or using products around the house.Use thick emollient lotions to promote moisture. [id number] Bertram Rivera MD [facility] ([facility]) [address] [place] [address] [id number] 5 06/30/2024 08:23:30 07/03/2024 10:34:27 Adult health examination 809818932 Z00.00 [id number] Bertram Rivera MD [facility] ([facility]) [address] [place] [address] [id number] 5 07/07/2024 09:48:10 07/07/2024 10:32:46 Bilateral lower leg edema 309464676 R60.0 Hypercholesterolemia 136 29269 E78.00 [id number] Bertram Rivera MD [facility] ([facility]) [address] [place], [place] [phone] 01/05/2025 10:37:00 01/05/2025 11:38:49 Bilateral lower leg edema 117615237 R60.0 Candidiasis of skin 4988 3006 B37.2 Hypercholesterolemia 136 47042 E78.00 Essential hypertension 60455155 I10 [id number] MOODY CHUNG [facility] ([facility]) [address] [place] [address] [id number] 5 05/15/2025 10:14:48 05/15/2025 11:21:01 Low back pain 271396242 M54.59 [id number] Patient advised to take medication as directed here. Patient advised to rest initially and then slowly increase activity level. Monitor changes in symptoms such as numbness, tingling or weakness in legs, changes in bowel or bladder habits or worsening back pain. RTC with any new or worsening symptoms. [id number] Bertram Rivera MD [facility] ([facility]) [address] [place] [address] [id number] 06/19/2025 14:39:59 07/02/2025 09:28:22 Low back pain 500928070 M54.50 Pain of hip region 26238 002 M25.551 [id number] Disorder o f right sciatic nerve 0280135820 86123 M54.31 [id number] Health Concerns Section Related Observation LastModified by Organization Detai ls LastModified Time None Recorded Concern Status LastModified by Organization Details LastModified Time None Recorded Advance Directives Directive None Recorded Payers Insurance Date Sequence Insurance Name Policy Number Policy Powell Covered Member ID Powell Member ID Guarantor Name 07/02/2025 1 [id number]/A DVANTAGE - PPO) [id number] Vivienne F Edna [id number] Vivienne F [place] Notes Date Note Type Note Provider Name and Address Organization Details Recorded Time 4 text/htm l 6 month Follow up on swelling in feet Bertram Rivera MD [address] [place] [address], [phone], [facility] [place] [facility], [place] 07/07/2024 10:31:36 5 text/htm l Care [...] month follow up Bertram Rivera MD [address] [place], [address], [facility] 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 MOODY CHUNG [address] [place], [address], [facility] 05/15/2025 11:18:19 5 text/htm l Hip(s)Reported [...] not in pain. Bertram Rivera MD [address] [place] [address], [phone], [facility] LD[facility] 06/30/2025 20:34:01 OBGyn Episode No OBEpisode recorded.
--- OUTSIDE RECORDS SUMMARY | 2025-08-03 16:07 | XMS_ITS | Encounter Summary ---
Author Organization [facility] Address [address] [place] [address] Care Team Providers Care Supervisor Cytogenetic Laboratory Name Role Phone Non-Staff, Physician Primary Care Provider Unava ilable Encounter Details Date Type Department Care Team (Latest Contact Info) Description 06/27/2003 Outpatient Historical [place] [facility] Gastroenterology- [place] [address] [place] [address] Diogenes Bah MD [address] [place] [phone] ANAL OR RECTAL PAIN (Primary Dx) Social History Tobacco Use Types Packs/Day Years Used Date Smoking Tobacco: Never Assessed Comments Unknown Sex and Gender Information Value Date Recorded Sex Assigned at Not on file 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
--- OUTSIDE RECORDS SUMMARY | 2025-08-03 16:07 | XMS_ITS | Encounter Summary ---
Author Organization [facility] Address [address] [place] [address] Care Team Providers Care Nitrating Acid Mixer Name Role Phone Non-Staff, Physician Primary Care Provider Unava ilable Encounter Details Date Type Department Care Team (Late st Contact Info) Description 11/25/2005 Outpatient Historical [facility] Cancer and Hematology [address] [place] [phone] Eros Munoz MD [address] [place] [address] MALIGN NEOPL BREAST NEC (CMS/HCC) (Primary Dx) Social History Tobacco Use Types Packs/Day Years Used Date Smoking Tobacco: Never Assessed Comments Unknown Sex and Gender Information Value Date Recorded Sex Assigned at Not on file 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
--- OUTSIDE RECORDS SUMMARY | 2025-08-03 16:07 | XMS_ITS | Encounter Summary ---
Author Organization [facility] Address [address] [place] [address] Care Team Providers Care Defence Intelligence Analyst Name Role Phone Non-Staff, Physician Primary Care Provider Unava ilable Encounter Details Date Type Department Care Team (Latest Contact Info) Description 08/22/2003 Outpatient Historical [facility] Cancer and Hematology 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
--- OUTSIDE RECORDS SUMMARY | 2025-08-03 16:07 | XMS_ITS | Encounter Summary ---
Author Organization [employer] [facility] Address [address] [place] [address] Care Team Providers Care Traffic Sergeant Name Role Phone Non-Staff, Physician Primary Care Provider Unava ilable Encounter Details Date Type Department Care Team (Latest Contact Info) Description 02/14/2003 Outpatient Historical [facility] Cancer and Hematology [address] [place] [phone] Prince Martinez MD NO ADDRESS ON FILE MALIGN NEOPL BREAST NEC (CMS/HCC) (Primary Dx) Social History Tobacco Use Types Packs/Day Years Used Date Smoking Tobacco: Never Assessed Comments Unknown Sex and Gender Information Value Date Recorded Sex Assigned at Not on file 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
--- OUTSIDE RECORDS SUMMARY | 2025-08-03 16:07 | XMS_ITS | Clinical Summary ---
Author Organization [facility] Address [address] 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
--- OUTSIDE RECORDS SUMMARY | 2025-08-03 16:07 | XMS_ITS | Encounter Summary ---
Author Organization [facility] Address [address] [place] [address] Care Team Providers Care Regional Engagement Consultant Name Role Phone Non-Staff, Physician Primary Care Provider Unava ilable Encounter Details Date Type Department Care Team (Late st Contact Info) Description 11/29/2006 Outpatient Historical [facility] Cancer and [facility]ematology 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
--- OUTSIDE RECORDS SUMMARY | 2025-08-03 16:07 | XMS_ITS | Clinical Summary ---
Author Organization [facility] Address 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
--- NOTE | 2025-08-03 16:15 | ECG_ITS ---
[facility] Test Date: 2025-08-03 Pat Name: Vivienne Bishop Department: Room: Gender: Female Black Top Raker: : 1940 Requested By: Giselle Keyes Order Number: [id number] Reading MD: JOSE RAUL PATTERSON Measurements Intervals [place] Rate: 87 P: 72 GA: 179 QRS: 93 QRSD: 90 T: 78 QT: 345 QTc: 417 Interpretive Statements SINUS RHYTHM BORDERLINE RIGHT AXIS DEVIATION [QRS AXIS > 90] Compared to ECG 07/28/2025 15:31:56 No significant changes Electronically Signed On 08-05-2025 22:27:45 CDT by JOSE RAUL PATTERSON [email or web address]
--- NOTE | 2025-08-03 16:15 | XRR_ITS ---
PROCEDURE INFORMATION: Exam: XR Chest Exam date and time: 08/03/2025 4:26 PM Age: 84 years old Clinical indication: Other: Weakness TECHNIQUE: Imaging protocol: Radiologic exam of the chest. Views: 1 view. COMPARISON: CR (CHEST, ) 07/28/2025 1:51 PM FINDINGS: Lungs: See Soft tissues finding. Pleural spaces: Unremarkable. No pleural effusion. No pneumothorax. Heart/Mediastinum: Unremarkable. No cardiomegaly. Bones/joints: Unremarkable. Soft tissues: Bilateral breast prostheses are evident. No mass lesion or infiltrate is identified. Lungs are stable in appearance with the exception of resolution of minimal platelike atelectasis in the left lung base, present on prior study. XR/XR chest 1V portable [id number] IMPRESSION: No acute cardiopulmonary pathology.
[2025-08-03 17:05] LABS: Hematocrit 40.6 % (36-47); Hemoglobin 13.40 g/dL (11.27-16.99); Mean Corpuscular HGB Conc 33.0 g/dL (30-55); Mean Corpuscular Hemoglobin 30.2 pg (27-33); Mean Corpuscular Volume 91.6 fl (85-98); Nucleated Red Blood Cells % 0 %; Platelet Count 226 10^3/cmm (157-399); Red Blood Count 4.43 10^6/uL (3.85-5.65); White Blood Count 14.67 10^3/uL (3.29-11.43)
[2025-08-03 17:23] LABS: Alanine Aminotransferase 18 U/L (0-33); Albumin Level 4.0 g/dL (3.5-5.2); Alkaline Phosphatase 114 U/L (35-105); Anion Gap 16.7 (5-19); Aspartate Amino Transferase 20 U/L (0-32); Blood Urea Nitrogen 13 mg/dL (8-23); Calcium 9.4 mg/dL (8.5-10.5); Carbon Dioxide 27 mmol/L (22-29); Chloride 96 mmol/L (98-107); Creatinine Clr Calc Pharmacy 64.1138; Globulin 3.3 g/dL (1.3-4.6); Glucose 112 mg/dL (65-115); Lipase 20 U/L (13-60); Osmolality Calculated 281 mOsm/kg (285-295); Potassium 4.7 mmol/L (3.5-5.1); Sodium 135 mmol/L (136-145); Total Protein 7.3 g/dL (6.6-8.7)
--- NOTE | 2025-08-03 19:33 | CTR_ITS ---
PROCEDURE INFORMATION: Exam: CT Head Without Contrast Exam date and time: 08/03/2025 7:48 PM Age: 84 years old Clinical indication: Altered mental status/memory loss; Confusion or disorientation; Per family, worsening confusion. Patient just finished abx treatment for UTI. ; Additional info: AMS TECHNIQUE: Imaging protocol: Computed tomography of the head without contrast. Radiation optimization: All CT scans at this facility use at least one of these dose optimization techniques: automated exposure control; mA and/or kV adjustment per patient size (includes targeted exams where dose is matched to clinical indication); or iterative reconstruction. COMPARISON: CT head wo con* [id number] 07/28/2025 1:52 PM RADIATION DOSE METRICS: Total DLP (mGy-cm): 1959.44 FINDINGS: Brain: Unchanged right parietal infarct. Small subcortical infarct in the left posterior parietal lobe is unchanged. Basal ganglia and subinsular hypodensities are unchanged, representing chronic ischemia. Additional mild periventricular white matter hypodensity is unchanged representing chronic small-vessel ischemic disease. 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 No mass effect or midline shift. No intracranial hemorrhage. Cerebral ventricles: No ventriculomegaly. Paranasal sinuses: Fluid fills the sphenoid sinuses. Mucosal thickening in the ethmoid air cells and maxillary sinuses. Mastoid air cells: Visualized mastoid air cells are well aerated. Bones: Unremarkable. No acute fracture. Soft tissues: Unremarkable. CT/CT head wo con* [id number] IMPRESSION: 1. Unchanged appearance to cerebral and cerebellar ischemic changes. 2. No acute intracranial abnormality noted. MRI should be considered in continuing evaluation of altered mental status. 3. Persistent sinusitis.
[2025-08-03 19:51] LABS: Lactic Sepsis W/Reflex 2.4 mmol/L (0.5-2.2)
--- NOTE | 2025-08-03 20:05 | W.ED.AMS ---
HPI - Altered Mental Status General: Chief Complaint: Altered Mental Status Stated Complaint: Stroke like Symtoms Time Seen by Provider: 08/03/25 18:57 History of Present Illness: 84-year-old female with ongoing confusion. She was seen 8 days ago for confusion in the emergency room care she was found to have a urinary tract infection. She was given IV antibiotics at that point, and orals to follow. She seemed to improve for several days, but for the past 24 to 48 hours she has again been confused, generally weak. She was able to drive last weekend on her own, but today cannot walk. She does not know her date of in triage. She complains of being generally weak, not focally weak. No vision changes. She has had chills. No fevers. No cough or shortness of breath. No significant pain. Related Data Home Medications ?Medication ?Instructions ?Recorded ?Confirmed aspirin 81 mg tablet,delayed 81 mg PO DAILY 12/25/19 04/18/25 release (Aspir-) simvastatin 20 mg tablet 20 mg PO DAILY 12/25/19 04/18/25 vitamin E 200 unit capsule 200 unit PO DAILY 12/25/19 04/18/25 Previous Rx's ?Medication ?Instructions ?Recorded azithromycin 250 mg tablet See Rx Instructions PO .COMPLEX #6 02/28/23 (Zithromax) tabs prednisone 20 mg tablet 20 mg PO BID 5 days #10 tabs 02/28/23 gabapentin 400 mg capsule See Rx Instructions .Route 07/25/25 .COMPLEX #450 caps hydrocodone 5 mg-acetaminophen 325 1 tab PO BID PRN pain 30 days #60 25 mg tablet tabs hydrocodone 5 mg-acetaminophen 325 1 tab PO BID PRN pain 30 days #60 25 mg tablet tabs hydrocodone 5 mg-acetaminophen 325 1 tab PO BID PRN pain 30 days #60 25 mg tablet tabs cephalexin 500 mg tablet 500 mg PO TID 7 days #21 tabs 07/28/25 ondansetron 4 mg disintegrating 4 mg PO Q8H PRN nausea and 07/28/25 tablet vomiting #10 tabs Allergies Allergy/AdvReac Type Severity Reaction Status Date / Time No Known Allergies Allergy Verified 08/03/25 16:14 [facility] ED PFSH: Family History Other CAD (coronary artery disease) Cancer Hypertension Stroke Denies family history of Diabetes Social History Smoking and tobacco/nicotine status: former use of tobacco/nicotine (quit 1993) Quit status (tobacco/nicotine): has quit using Year quit tobacco: 1974 Alcohol intake: never Substance/Drug Use: never Physical Exam Const: COMMON NORMALS: no acute distress GENERAL APPEARANCE: cooperative and ill appearing (Mildly) HENMT: COMMON NORMALS: normocephalic, atraumatic and Normal external nose present HEAD & SCALP: normocephalic and atraumatic FACE & SINUS: normal facial exam and face symmetric NOSE: Normal external nose present Eye: COMMON NORMALS: Equal, round and reactive pupils present and EOMs intact bilaterally PUPIL: Yes Equal, round and reactive pupils present Neck/C-Spine: GENERAL: Yes trachea midline Chest: CHEST: Yes Symmetrical chest wall rise Resp: COMMON NORMALS: normal respiratory effort, No retractions, No use of accessory muscles and clear to auscultation bilaterally AUSCULTATION: clear to auscultation bilaterally Cardio: COMMON NORMALS: regular rate and regular rhythm RATE: regular rate RHYTHM: regular rhythm GI: COMMON NORMALS: Normal to inspection, nondistended, normoactive bowel sounds present Extremity: COMMON NORMALS: no pedal edema Neuro: CHLOE COMA SCALE: document GCS findings Elliott coma scale eye opening: Spontaneous Chloe coma scale verbal response: Confused Elliott coma scale motor response: Obey commands Elliott coma scale total score: 14 SENSORY EXAM: Yes extremities (intact) Psych: COMMON NORMALS: speech normal SPEECH: Yes normal speech Skin: COMMON NORMALS: no rashes or lesions noted GENERAL SKIN EXAM: no rashes or lesions noted Course Vital Signs: Vital signs: Vital Signs Temperature 98.7 F 08/04/25 02:41 Pulse Rate 91 08/03/25 23:52 Respiratory Rate 18 08/03/25 16:07 Blood Pressure 127/92 08/03/25 23:52 Pulse Oximetry 93 08/04/25 02:41 Oxygen Delivery Me thod Room Air 08/04/25 02:41 MDM - Altered Mental Status Medical Decision Making Patient with altered mental status, generalized weakness. Inability to walk. This in a lady who drove herself 25 miles to see family a few days ago. Her urine culture previously did not grow pathologic organisms. Blood cultures did not either. She does not appear to have a urinary tract infection today. She does however have a leukocytosis of 15. No left shift BMP is not remarkable. Liver enzymes are normal. Lipase is 20. Urinalysis is negative as above. Chest x-ray is nonacute. Head CT is nonacute, and shows no change from previous. She is given a fluid bolus. Lactic acid initially was minimally elevated. She is covered with antibiotics. Spoke with the hospitalist who has agreed to admit. Lab Data 08/03/25 16:58 08/03/25 16:58 Radiology Impressions Chest X-Ray 08/03/25 16:15 IMPRESSION: No acute cardiopulmonary pathology. Head CT 08/03/25 19:33 IMPRESSION: 1. Unchanged appearance to cerebral and cerebellar ischemic changes. 2. No acute intracranial abnormality noted. MRI should be considered in continuing evaluation of altered mental status. 3. Persistent sinusitis. Laboratory Results WBC 14.67 10^3/uL (3.29-11.43) H 08/03/25 16:58 RBC 4.43 10^6/uL (3.85-5.65) 08/03/25 16:58 Hgb 13.40 g/dL (11.27-16.99) 08/03/25 16:58 Hct 40.6 % (36-47) 08/03/25 16:58 MCV 91.6 fl (85-98) 08/03/25 16:58 MCH 30.2 pg (27-33) 08/03/25 16:58 MCHC 33.0 g/dL (30-55) 08/03/25 16:58 RDW 13.7 % (12.1-15.1) 08/03/25 16:58 Plt Count 226 10^3/cmm (157-399) 08/03/25 16:58 MPV 9.3 fL (7.4-10.4) 08/03/25 16:58 Neut % (Auto) 82.5 % 08/03/25 16:58 Lymph % (Auto) 8.1 % 08/03/25 16:58 Emmet % (Auto) 8.7 % 08/03/25 16:58 Eos % (Auto) 0.2 % 08/03/25 16:58 Baso % (Auto) 0.1 % 08/03/25 16:58 Neut # (Auto) 12.10 10^3/uL (1.8-7.7) H 08/03/25 16:58 Lymph # (Auto) 1.2 10^3/uL (0.8-4.8) 08/03/25 16:58 Emmet # (Auto) 1.3 10^3/uL (0.2-0.9) H 08/03/25 16:58 Eos # (Auto) 0.0 10^3/uL (0.0-0.8) 08/03/25 16:58 Baso # (Auto) 0.0 10^3/uL (0.0-0.1) 08/03/25 16:58 Nucleated RBC % (auto) 0 % 08/03/25 16:58 Nucleated RBCs # 0.0 /100WBC 08/03/25 16:58 Specimen Type Arterial 08/03/25 20:00 Sample Site Radial, left 08/03/25 20:00 ABG pH 7.48 (7.35-7.45) H 08/03/25 20:00 ABG pCO2 37.1 mmHg (35-45) 08/03/25 20:00 ABG pO2 62.8 mmHg (80.0-100.0) L 08/03/25 20:00 ABG HCO3 27.6 mmol/L (22-26) H 08/03/25 20:00 ABG Base Excess 4.0 mmol/L (-2.0-2.0) H 08/03/25 20:00 Greg Test Pos 08/03/25 20:00 Hematocrit 41.2 % (37-47) 08/03/25 20:00 O2 Delivery Device Room air 08/03/25 20:00 Guard Rail Installer ID [email or web address] 08/03/25 20:00 Sodium 135 mmol/L (136-145) L 08/03/25 16:58 Potassium 4.7 mmol/L (3.5-5.1) 08/03/25 16:58 Chloride 96 mmol/L (98-107) L 08/03/25 16:58 Carbon Dioxide 27 mmol/L (22-29) 08/03/25 16:58 Anion Gap 16.7 (5-19) 08/03/25 16:58 BUN 13 mg/dL (8-23) 08/03/25 16:58 Creatinine 0.8 mg/dL (0.5-0.9) 08/03/25 16:58 GFR Calculation Not Reportable 08/03/25 16:58 Glucose 112 mg/dL (65-115) 08/03/25 16:58 POC Glucose 103 mg/dL (70-110) 08/03/25 16:13 Calculated Osmolality 281 mOsm/kg (285-295) L 08/03/25 16:58 Lactic Acid 2.4 mmol/L (0.5-2.2) H 08/03/25 16:58 Lactic Acid (Sepsis) 1.4 mmol/L (0.5-2.2) 08/03/25 21:01 Calcium 9.4 mg/dL (8.5-10.5) 08/03/25 16:58 Total Bilirubin 0.8 mg/dL (0.15-1.2) 08/03/25 16:58 AST 20 U/L (0-32) 08/03/25 16:58 ALT 18 U/L (0-33) 08/03/25 16:58 Alkaline Phosphatase 114 U/L (35-105) H 08/03/25 16:58 Total Protein 7.3 g/dL (6.6-8.7) 08/03/25 16:58 Albumin 4.0 g/dL (3.5-5.2) 08/03/25 16:58 Globulin 3.3 g/dL (1.3-4.6) 08/03/25 16:58 Lipase 20 U/L (13-60) 08/03/25 16:58 Urine Color Yellow (Yellow) 08/03/25 20:19 Urine Appearance Clear (CLEAR) 08/03/25 20:19 Urine pH 7.5 (5-7) 08/03/25 20:19 Ur Specific [place] 1.022 (1.005-1.030) 08/03/25 20:19 Urine Protein Trace (Negative) A 08/03/25 20:19 Urine Glucose (UA) Negative (Normal) 08/03/25 20:19 Urine Ketones Negative (Negative) 08/03/25 20:19 Urine Blood Negative (Negative) 08/03/25 20:19 Urine Nitrate Negative (Negative) 08/03/25 20:19 Urine Bilirubin Negative (Negative) 08/03/25 20:19 Urine Urobilinogen 1.0 mg/dL (Negative) 08/03/25 20:19 Ur Leukocyte Esterase Negative (Negative) 08/03/25 20:19 Urine RBC 0-2 /hpf (0-2) 08/03/25 20:19 Urine WBC 0-5 /hpf (0-5) 08/03/25 20:19 Ur Squamous Epith Cells 0-5 /hpf (0-5) 08/03/25 20:19 Amorphous Sediment Not Reportable 08/03/25 20:19 Urine Bacteria None seen /hpf (NONE) 08/03/25 20:19 Hyaline Casts 1.65 /lpf 08/03/25 20:19 All radiology interpretation(s) finalized by discharge Discharge Plan Discharge Patient Disposition: Admitted As Inpatient Admit Provider: Ely Smith Clinical Impression: Altered mental status, Metabolic encephalopathy Condition: Stable Coding Level of Care Code ED Motorcycle Engine Assembler for Manuelito Roberto NIH stroke score NIHSS Level Of Consciousness - 1a: 0 Level Of Consciousness Questions - 1b: One Correct Level Of Consciousness Commands - 1c: Both Correct Best Gaze - 2: Normal Visual Arnett - 3: No Visual Loss Facial Palsy - 4: Normal Motor Arm Right - 5: No Drift Motor Arm Left - 5: No Drift Motor Leg Right - 6: No Drift Motor Leg Left - 6: No Drift Limb Ataxia - 7: Absent Sensory - 8: Normal Best Language - 9: No Aphasia Dysarthia - 10: Normal Extinction And Inattention - 11: 0 Score Total Score: 1
[2025-08-03 20:11] LABS: ABG PCO2 37.1 mmHg (35-45); ABG PH Result 7.48 (7.35-7.45); Arterial Blood Gas Hematocrit 41.2 % (37-47); Blood Gas Allen Test Pos; Blood Gas Sample Site Radial, left; Blood Gas Sample Type Arterial; HCO3 ABG 27.6 mmol/L (22-26); PO2 ABG 62.8 mmHg (80.0-100.0)
[2025-08-03 20:18] LABS: Reflex Lactate Order REFLEX LACTIC ORDERD
[2025-08-03 20:28] LABS: Glucose Urine UA Negative (Normal); Nitrate Urine Negative (Negative); Specific Gravity, Urine 1.022 (1.005-1.030)
[2025-08-03 20:33] LABS: Add Urine Microscopic? YES
[2025-08-03 21:29] LABS: Lactic Acid level (Lactate) 1.4 mmol/L (0.5-2.2)
[2025-08-03 22:30] VITALS: BP 103/65; O2SAT 91
[2025-08-03] MEDS: piperacillin-tazobactam 4.5 GM in sodium chloride 0.9% (plus) 50 ML IV (22:57)
[2025-08-03 23:27] VITALS: O2SAT 90
--- NOTE | 2025-08-03 23:43 | P.HP_ITS ---
Providers/Chief Complaint 2 Admitting Physician: Ely Smith MD----patient seen and admitted before 12 midnight Primary Care Provider: George Walker MD Chief Complaint: Stroke like Symtoms History of Present Illness Vivienne Bishop is a 84 year old female with medical history significant for hyperlipidemia, UTI who was recently seen about 10 days ago in the emergency room with pyuria and was treated for UTI and discharged. Patient now presenting again with a change in mental status feeling chills cold all day not feeling well coming in to be evaluated. Review of lab studies from 10 days ago patient urine culture was negative blood culture was negative and this was before the antibiotics was even started and before the patient was discharged out of emergency room. This time patient eats confused to where she did not know her birthdate. Patient is with lactic acidosis change in mental status and source is unknown. Chest x-ray is clean. Urinalysis is clean white count elevated prior urine culture and blood culture from prior presentation in the ED was culture negative. Patient admits to chills but no fever Patient pancultured from blood empiric antibiotics of Zosyn and doxycycline initiated will admit to general medical floor for further care Review of Systems 2 Narrative: System review upon 10 organ review not significant except for change in mental status Medications/Allergies Home Medications ?Medication ?Instructions ?Recorded ?Confirmed ?Last Taken ?Type aspirin 81 mg tablet,delayed 81 mg PO DAILY 12/25/19 0 04/18/25 Unknown History release (Aspir-) simvastatin 20 mg tablet 20 mg PO DAILY 12/25/1907/05 Unknown History vitamin E 200 unit capsule 200 unit PO DAILY 12/25/19 04/18/25 Unknown History azithromycin 250 mg tablet See Rx Instructions PO .COM PLEX #6 02/28/23 04/18/25 Unknown Rx (Zithromax) tabs prednisone 20 mg tablet 20 mg PO BID 5 days #10 tabs 02/28/23 04/18/25 Unknown Rx gabapentin 400 mg capsule See Rx Instructions .Route 1 Unknown Rx .COMPLEX #450 caps hydrocodone 5 mg-acetaminophen 325 1 tab PO BID PRN pa in 30 days #60 07/25/25 Unknown Rx mg tablet tabs hydrocodone 5 mg-acetaminophen 325 1 tab PO BID PRN pa in 30 days #60 07/25/25 Unknown Rx mg tablet tabs hydrocodone 5 mg-acetaminophen 325 1 tab PO BID PRN pa in 30 days #60 07/25/25 Unknown Rx mg tablet tabs cephalexin 500 mg tablet 500 mg PO TID 7 days #21 tab s 07/28/25 Unknown Rx ondansetron 4 mg disintegrating 4 mg PO Q8H PRN nausea and 07/28/25 Unknown Rx tablet vomiting #10 tabs Allergies Allergy/AdvReac Type Severity Reaction Status Date / Time No Known Allergies Allergy Verified 08/03/25 16:14 PFSH Acute 2 PFSH: Family History Other CAD (coronary artery disease) Cancer Hypertension Stroke Denies family history of Diabetes Social History Smoking and tobacco/nicotine status: former use of tobacco/nicotine (quit 1993) Quit status (tobacco/nicotine): has quit using Year quit tobacco: 1974 Alcohol intake: never Substance/Drug Use: never Vitals/I&O/Wt Last Vital Signs Temp 98.2 F 08/03/25 16:07 Pulse 87 08/03/25 16:07 Resp 18 08/03/25 16:07 BP 103/65 08/03/25 22:30 Pulse Ox 90 08/03/25 23:27 O2 Del Method Room Air 08/03/25 23:27 Weight last 48 hrs Weight 101.605 kg Physical Exam 2 Narrative: Generally patient complains of having chills but otherwise doing okay. HEENT normocephalic/atraumatic neck neck is supple cardiovascular heart is regular lungs are pretty much clear abdomen soft nontender nondistended unremarkable extremities are intact no edema has good pulses neurology has no focality lab studies lab studies reviewed and noted. Lab studies significant for leukocytosis with left shift Data 08/03/25 16:58 08/03/25 16:58 Micro: Microbiology 08/03/25 22:10 Blood Culture - Preliminary Blood SPECIMEN COLLECTED 08/03/25 21:01 Blood Culture - Preliminary Blood SPECIMEN COLLECTED A&P Assessment and plan 1. Dehydration: 2. Sepsis: 3. Lactic acidosis: 4. Metabolic encephalopathy: Plan: Sepsis - Admit to general medical floor - Pancultured - Empiric antibiotics initiated with Zosyn and doxycycline - Patient with metabolic encephalopathy and lactic acidosis with leukocytosis - Will continue to follow through and optimize - Gentle hydration - Chills but no fever - Sepsis with no source, likely systemic inflammatory reaction - Will continue to treat and optimize PDMP PDMP Reviewed: Not Reviewed Attestations 2 Medical Necessity Statement*: Patient with metabolic encephalopathy leukocytosis and change in mental status and sepsis will need at least 2 midnights to optimize care Coding Level of Care Code 87620 Diagnoses Dehydration E86.0 Sepsis A41.9 Lactic acidosis E87.20 Metabolic encephalopathy G93.41 Time Spent (min) 60
[2025-08-03 23:52] VITALS: BP 127/92; PULSE 91; O2SAT 90
[2025-08-04] VITALS (10 sets, daily range): BP systolic 115–133; BP diastolic 64–77; PULSE 64–97; RESP 16–20; TEMP 36.7–38.1; O2SAT 91–96
[2025-08-04] MEDS: doxycycline 100 MG in sodium chloride 0.9% (plus) 100 ML IV (01:58)
[2025-08-04] MEDS: heparin 5,000 unit/mL INJ 1 mL 5000 UNIT SUBCUT ×2 (01:59→11:46)
[2025-08-04 05:32] LABS: Hematocrit 37.5 % (36-47); Hemoglobin 12.40 g/dL (11.27-16.99); Mean Corpuscular HGB Conc 33.1 g/dL (30-55); Mean Corpuscular Hemoglobin 29.9 pg (27-33); Mean Corpuscular Volume 90.4 fl (85-98); Nucleated Red Blood Cells % 0 %; Platelet Count 198 10^3/cmm (157-399); Red Blood Count 4.15 10^6/uL (3.85-5.65); White Blood Count 13.93 10^3/uL (3.29-11.43)
[2025-08-04 05:52] LABS: Alanine Aminotransferase 15 U/L (0-33); Albumin Level 3.5 g/dL (3.5-5.2); Alkaline Phosphatase 103 U/L (35-105); Anion Gap 15.7 (5-19); Aspartate Amino Transferase 19 U/L (0-32); Blood Urea Nitrogen 12 mg/dL (8-23); Calcium 8.5 mg/dL (8.5-10.5); Carbon Dioxide 24 mmol/L (22-29); Chloride 101 mmol/L (98-107); Creatinine Clr Calc Pharmacy 64.1138; Globulin 2.9 g/dL (1.3-4.6); Glucose 117 mg/dL (65-115); Magnesium 1.9 mg/dL (1.7-2.3); Osmolality Calculated 285 mOsm/kg (285-295); Potassium 3.7 mmol/L (3.5-5.1); Sodium 137 mmol/L (136-145); Total Protein 6.4 g/dL (6.6-8.7)
[2025-08-04] MEDS: piperacillin-tazobactam 4.5 GM in sodium chloride 0.9% (plus) 50 ML IV (06:25)
--- NOTE | 2025-08-04 08:29 | USR_ITS ---
PROCEDURE INFORMATION: Exam: US Duplex Bilateral Extracranial Arteries; Complete; Carotid Arteries Exam date and time: 08/04/2025 10:01 AM Age: 84 years old Clinical indication: Altered mental status/memory loss; Additional info: AMS TECHNIQUE: Imaging protocol: Real-time duplex ultrasound scan of the bilateral extracranial arteries combining milian scale, color Doppler and spectral waveform analysis with image documentation. Complete exam. Exam focused on the carotid arteries. COMPARISON: CT head wo con* [id number] 08/03/2025 7:48 PM FINDINGS: Right common carotid artery: Unremarkable. No occlusion or stenosis. Waveforms are normal. Peak systolic velocity 63.8-105.3 cm/sec. Right internal carotid artery: Unremarkable. No occlusion or stenosis. Waveforms are normal. Peak systolic velocity 42.9-70.6 cm/sec. Right ICA/CCA ratio: 1.0, within normal limits. Right external carotid artery: No stenosis in the origin. Right vertebral artery: Unremarkable. Antegrade flow. Left common carotid artery: Unremarkable. No occlusion or stenosis. Waveforms are normal. Peak systolic velocity 67.7-130.5 cm/sec. Left internal carotid artery: Unremarkable. No occlusion or stenosis. Waveforms are normal. Peak systolic velocity 35.4-43.2 cm/sec. Left ICA/CCA ratio: 0.5, within normal limits. Left external carotid artery: No stenosis in the origin. Left vertebral artery: Unremarkable. Antegrade flow. US/CV carotid duplex BI* [id number] IMPRESSION: 1. No carotid arterial stenosis. 2. Antegrade flow in bilateral vertebral arteries. REFERENCES: SRU CRITERIA. The degree of internal carotid artery stenosis is based on criteria defined by the Society of Radiologists in Ultrasound (SRU). Normal is no stenosis. Mild is less than 50% stenosis. Moderate is 50-69% stenosis. Severe is greater than 69% stenosis to near occlusion. Near occlusion is a markedly narrowed lumen. Total occlusion is no detectable patent lumen. Giselle Austin, et al. Carotid Artery Stenosis: Milian-Scale and Doppler US Diagnosis-Society of Radiologists in Ultrasound Consensus Conference. Radiology 2003; 229:340-346.
--- NOTE | 2025-08-04 08:29 | USCV_ITS ---
Vivienne Bishop Age: 84 Gender: F : 1940 Exam Date: 08/04/2025 10:25 Ordering Phys: Anson Davalos MD Technologist: David Lipscomb Exam Location: [facility] [place] Indication: ams BP: 129 / 71 HR: 93 Rhythm: Other Technical Quality: Adequate MEASUREMENTS (Male / Female) Normal Values 2D ECHO LV Diastolic Diameter PLAX 4.2 cm 4.2 - 5.9 / 3.9 - 5.3 cm IVS Diastolic Thickness 0.9 cm 0.6 - 1.0 / 0.6 - 0.9 cm IVS Systolic Thickness 1.3 cm LVPW Diastolic Thickness 0.8 cm 0.6 - 1.0 / 0.6 - 0.9 cm LVPW Systolic Thickness 1.3 cm LVOT Diameter 2.0 cm LV Ejection Fraction 2D Teich 61.4 % LV Ejection Fraction MOD 4C 74.0 % LV Ejection Fraction MOD 2C 79.1 % LV Ejection Fraction 2C AL 79.3 % LA Diameter 3.7 cm RA Systolic Volume 4C AL 35.0 ml RA Systolic Volume 4C MOD 32.6 ml LA Sys Volume AL 29.7 cm cubed LA Sys Volume Index AL 13.4 cm cubed/m squared Aorta at Sinotubular Diameter 2.7 cm IVC Diameter 2.0 cm M-MODE LA Ao Ratio MM 1.3 AV Cusp Separation MM 1.0 cm DOPPLER AV Peak Velocity 142.0 cm/s LVOT Peak Velocity 124.0 cm/s AV Area Cont Eq vti 2.4 cm squared AV Area Cont Eq pk 2.8 cm squared MV Peak Velocity 127.0 cm/s MV Area PHT 4.3 cm squared Mitral E to A Ratio 0.7 PV Peak Velocity 138.0 cm/s RV Ejection Time 0.3 s FINDINGS Left Ventricle Normal left ventricular size, systolic function and wall thickness, with no regional wall motion abnormalities. Left ventricular ejection fraction is estimated at 60 %. Grade I/IV diastolic dysfunction (abnormal relaxation filling pattern), normal to mildly elevated filling pressures. Right Ventricle Normal right ventricular size and systolic function. Right Atrium Normal right atrial size. Left Atrium Normal left atrial size. IA Septum Normal appearance of the interatrial septum. Mitral Valve Normal mitral valve structure. No mitral valve stenosis or regurgitation. Aortic Valve Mild aortic valve calcification. No aortic valve stenosis. Trace aortic valve regurgitation. Tricuspid Valve Normal tricuspid valve structure. No tricuspid valve stenosis or regurgitation. Normal pulmonary pressure. Pulmonic Valve Normal pulmonic valve structure. No pulmonic valve stenosis or regurgitation. Pericardium No pericardial effusion. Aorta Normal diameter of the aortic root and ascending thoracic aorta. IVC Normal IVC diameter. CONCLUSIONS Normal left ventricular size, systolic function and wall thickness, with no regional wall motion abnormalities. Left ventricular ejection fraction is estimated at 60 %. Grade I/IV diastolic dysfunction (abnormal relaxation filling pattern), normal to mildly elevated filling pressures. No significant valvular abnormalities. There are no intracardiac masses. Right atrial pressure is around 5 mm of mercury. Kati Conroy MD (Electronically Signed) Final Date: 04 August 2025 23:17 S
--- NOTE | 2025-08-04 08:35 | PHA.VACGOAL ---
Vancomycin Goal - Goal Vancomycin Goal:: 15-20 mg/L Vancomycin Indication:: Other (SEPSIS) - Therapy Day of therpy:: Day []of [] . Actual body weight (kg): 224 lb - Data Labs: WBC 13.93 10^3/uL (3.29-11.43) H 08/04/25 04:57 RBC 4.15 10^6/uL (3.85-5.65) 08/04/25 04:57 Hgb 12.40 g/dL (11.27-16.99) 08/04/25 04:57 Hct 37.5 % (36-47) 08/04/25 04:57 MCV 90.4 fl (85-98) 08/04/25 04:57 MCH 29.9 pg (27-33) 08/04/25 04:57 MCHC 33.1 g/dL (30-55) 08/04/25 04:57 RDW 13.6 % (12.1-15.1) 08/04/25 04:57 Sodium 137 mmol/L (136-145) 08/04/25 04:57 Potassium 3.7 mmol/L (3.5-5.1) 08/04/25 04:57 Chloride 101 mmol/L (98-107) 08/04/25 04:57 Carbon Dioxide 24 mmol/L (22-29) 08/04/25 04:57 Anion Gap 15.7 (5-19) 08/04/25 04:57 BUN 12 mg/dL (8-23) 08/04/25 04:57 Creatinine 0.8 mg/dL (0.5-0.9) 08/04/25 04:57 GFR Calculation Not Reportable 08/04/25 04:57 Last dialysis session:: N/A Treatment plan:: new consult Regimen:: INITIAL LOADING DOSE OF 2000 MG X 1 MAINTENANCE DOSE OF 1250 MG Q12H PER DOSING PROTOCOL. Follow up:: WILL CONTINUE TO MONITOR AND FOLLOW UP DAILY
--- NOTE | 2025-08-04 09:07 | ECG_ITS ---
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
[2025-08-04 10:12] LABS: Troponin(5th) Baseline 13 ng/L (0-10)
[2025-08-04 10:17] LABS: Procalcitonin 0.11 ng/mL (0-0.5)
--- NOTE | 2025-08-04 10:29 | ECG_ITS ---
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
--- NOTE | 2025-08-04 11:53 | PC.PHAR ---
Patient's family memeber states Patient staes she took morning meds before being admitted , but family memeber wasn't sure if she did. Family member states Patient would not know medication she is taking . I checked fill dates with pharmacy .
[2025-08-04 12:15] LABS: Troponin 5 2HR 17.14 ng/L (0-10); Troponin 5 2HR Delta 4.14 ABS# (0-10)
--- NOTE | 2025-08-04 12:32 | CTR_ITS ---
PROCEDURE INFORMATION: Exam: CT Chest Without Contrast; Diagnostic Exam date and time: 08/04/2025 1:47 PM Age: 84 years old Clinical indication: Abdominal tenderness; Dyspnea; Additional info: Leukocytosis, AMS TECHNIQUE: Imaging protocol: Diagnostic computed tomography of the chest without contrast. Radiation optimization: All CT scans at this facility use at least one of these dose optimization techniques: automated exposure control; mA and/or kV adjustment per patient size (includes targeted exams where dose is matched to clinical indication); or iterative reconstruction. COMPARISON: CR XR chest 1V portable [id number] 08/03/2025 4:26 PM RADIATION DOSE METRICS: Total DLP (mGy-cm): 1361.54 FINDINGS: Lungs: Tracheobronchomalacia. Otherwise unremarkable major airways. The lungs are clear. Pleural spaces: Unremarkable. No pneumothorax. No pleural effusion. Heart: Cardiomegaly. No pericardial fluid. No significant coronary vessel atherosclerosis. Lymph nodes: Several mildly prominent bilateral axillary and paratracheal station lymph nodes are present, likely reactive. Vasculature: Pulmonary trunk is dilated, measuring up to 4.3 cm in diameter. The bilateral main pulmonary arteries are also dilated, 3.3 cm on the right, and on the left. Mild pulmonary vascular prominence. Bones/joints: Unremarkable. No acute fracture. Soft tissues: Breast tissues are not well seen. Possible prior bilateral mastectomies given presence of surgical lorenzo in the bilateral axillae suggestive of lymph node dissection or sampling. PROCEDURE INFORMATION: Exam: CT Abdomen And Pelvis Without Contrast Exam date and time: 08/04/2025 1:47 PM Age: 84 years old Clinical indication: Abdominal tenderness; Dyspnea; Additional info: Leukocytosis, AMS TECHNIQUE: Imaging protocol: Computed tomography of the abdomen and pelvis without contrast. Radiation optimization: All CT scans at this facility use at least one of these dose optimization techniques: automated exposure control; mA and/or kV adjustment per patient size (includes targeted exams where dose is matched to clinical indication); or iterative reconstruction. COMPARISON: CR XR lumbar spine 2-3V* [id number] 06/19/2025 3:06 PM RADIATION DOSE METRICS: Total DLP (mGy-cm): 1361.54 FINDINGS: Lungs: Lung bases are clear as visualized. Diaphragm: Tiny hiatal hernia. Liver: Normal. No mass. Gallbladder and biliary ducts: Status post cholecystectomy. Intra and extrahepatic bile ducts are unremarkable.. Pancreas: Pancreas is mildly edematous, with moderate peripancreatic inflammatory change. No ductal dilatation or focal pancreatic lesion. Spleen: Normal. No splenomegaly. Adrenal glands: Normal. No mass. Kidneys and ureters: Normal. No hydronephrosis. Stomach and bowel: Mild thickening of the entire colon and rectum noted with minimal pericolonic and perirectal hyperemia. Nonspecific. May represent acute infectious/inflammatory proctitis. Recommend correlation. Moderate to severe pancolonic diverticulosis without distinct acute diverticulitis. Small bowel is unremarkable. Appendix: No evidence of appendicitis. Intraperitoneal space: Moderate central mesenteric stranding/panniculitis, tracking caudally from the pancreas. Vasculature: Unremarkable. No abdominal aortic aneurysm. Lymph nodes: Unremarkable. No enlarged lymph nodes. Urinary bladder: Mildly distended bladder. Reproductive: Unremarkable as visualized. Bones/joints: Posterior instrumented fusion L5-S1, without distinct evidence of hardware loosening or fracture. Moderate to severe degenerative change in the lumbar spine. No acute osseous or soft tissue abnormality. Soft tissues: See Bones/joints finding. CT/[place] [id number] IMPRESSION: 1. The lungs are clear. 2. Cardiomegaly. 3. Pulmonary trunk is dilated, measuring up to 4.3 cm in diameter. The bilateral main pulmonary arteries are also dilated, 3.3 cm on the right, and on the left. 4. Mild pulmonary vascular prominence. Suggestive of pulmonary venous hypertension. IMPRESSION: 1. Pancreas is mildly edematous, with moderate peripancreatic inflammatory change. No ductal dilatation or focal pancreatic lesion. Suggestive of acute interstitial edematous pancreatitis. Recommend correlation. 2. Mild thickening of the entire colon and rectum noted with minimal pericolonic and perirectal hyperemia. Nonspecific. May represent acute infectious/inflammatory proctitis. Recommend correlation. 3. Moderate to severe pancolonic diverticulosis without distinct acute diverticulitis.
--- NOTE | 2025-08-04 13:34 | PC.PT ---
PT eval attempted. Patient refuses despite multiple attempts to persuade patient to get up to chair or sit up on side of bed. Will monitor and attempt as patient allows.
--- NOTE | 2025-08-04 13:42 | PC.NURSE ---
5 of pts rings removed prior to pt going to ct scan. 1 ring was unable to be removed at this time. rings given to carisa ko
--- NOTE | 2025-08-04 14:29 | P.PN_ITS ---
Subjective 2 Subjective: - Patient was seen this morning - Currently he is alert to person, not p lace, to time - Daughter is at bedside, she does not r ecognize daughter - No facial droop no slurring words she moves bilateral upper and lower extremities, no focal weakness - Daughter tells me that she lives at [facility] by herself, that she is able to ambulate, she drives her car, she also works part-time, no history of dementia -Patient denies any chest pain, no short ness of breath, no abdominal pain Vitals/I&O/Wt Last Vital Signs Temp 99.7 F H 08/04/25 11:49 Pulse 64 08/04/25 11:49 Resp 16 08/04/25 11:49 BP 122/70 08/04/25 11:49 Pulse Ox 91 08/04/25 11:49 O2 Del Method Room Air 08/04/25 11:49 O2 Flow Rate 95 08/04/25 05:29 08/03/25 08/04/25 08/04/25 22:59 06:59 14:59 Intake Total 3638.15 / 3638.15 450 / 450 Balance 3638.15 / 3638.15 450 / 450 Weight last 48 hrs Weight 101.605 kg Weight 101.605 kg Physical Exam 2 Const: COMMON NORMALS: no acute distress EXAM LIMITATIONS: altered mental status ORIENTATION/CONSCIOUSNESS: Yes awake, Yes oriented to person and Yes confused; not oriented to place and not oriented to time Eye: COMMON NORMALS: Equal, round and reactive pupils present and EOMs intact bilaterally PUPIL: Yes Equal, round and reactive pupils present Lymph: LYMPHATIC: no lymphadenopathy noted Resp: COMMON NORMALS: normal respiratory effort, No retractions, No use of accessory muscles and clear to auscultation bilaterally AUSCULTATION: clear to auscultation bilaterally Cardio: COMMON NORMALS: regular rate, regular rhythm, S1 normal heart sound present and S2 normal heart sound present RATE: regular rate RHYTHM: r egular rhythm HEART SOUNDS: S1 normal heart sound present and S2 normal heart sound present GI: COMMON NORMALS: Normal to inspection, nondistended, normoactive bowel sounds present and non-tender Extremity: COMMON NORMALS: no pedal edema Neuro: SENSORIUM/ORIENTATION: Yes oriented to person, No oriented to place and No oriented to time OTHER: Moves bilateral upper and lower extremities, no focal weakness, no facial droop no slurring words, difficult to do extensive neurologic testing given her global encephalopathy Data 08/04/25 04:57 08/04/25 04:57 Micro: Microbiology 08/03/25 22:10 Blood Culture - Preliminary Blood SPECIMEN COLLECTED 08/03/25 21:01 Blood Culture - Preliminary Blood SPECIMEN COLLECTED A&P Assessment and plan 1. Dehydration: 2. Sepsis: 3. Lactic acidosis: 4. Metabolic encephalopathy: 5. Acute encephalopathy: Plan: Acute encephalopathy, encephalopathy, generalized weakness, inability to walk, - Etiology unclear -Leukocytosis, leukocytosis 14.67, neutrophilic - ESR 24 - CRP 109 - Pro-Don 0.1 - Urinalysis within normal limits - Chest x-ray within normal limits - CT head FINDINGS: Brain: Unchanged right parietal infarct. Small subcortical infarct in the left posterior parietal lobe is unchanged. Basal ganglia and subinsular hypodensities are unchanged, representing chronic ischemia. Additional mild periventricular white matter hypodensity is unchanged representing chronic small-vessel ischemic disease. 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 No mass effect or midline shift. No intracranial hemorrhage. Cerebral ventricles: No ventriculomegaly. Paranasal sinuses: Fluid fills the sphenoid sinuses. Mucosal thickening in the ethmoid air cells and maxillary sinuses. Mastoid air cells: Visualized mastoid air cells are well aerated. Bones: Unremarkable. No acute fracture. Soft tissues: Unremarkable. Plan - Cardiac echo - Carotid ultrasound - CT chest abdomen pelvis -TSH, levels, alcohol, drug screen -IV fluids -Follow-up blood cultures -Potential withdrawal from gabapentin will resume - Neurochecks - NIH stroke scale - Vancomycin - Zosyn -PT OT - Full code - Lovenox for DVT prophylaxis PDMP PDMP Reviewed: Not Reviewed Attestations 2 Medical Necessity Statement*: Patient requires hospitalization, inpatient, greater than 2 midnights, for acute encephalopathy Diagnoses Dehydration E86.0 Sepsis A41.9 Lactic acidosis E87.20 Metabolic encephalopathy G93.41 Acute encephalopathy G93.40
--- NOTE | 2025-08-04 15:22 | ECG_ITS ---
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 [id number]
[2025-08-04] MEDS: piperacillin-tazobactam 3.375 GM in sodium chloride 0.9% (plus) 50 ML IV (15:57)
[2025-08-04 16:22] LABS: Troponin 5 6HR 32.74 ng/L (0-10)
[2025-08-04 16:26] LABS: Troponin 5 6HR Delta 19.74 ng/L (0-12)
[2025-08-04 16:29] LABS: Thyroid Stimulating Hormone 0.47 uIU/mL (0.27-4.20)
[2025-08-04 16:30] LABS: Alcohol Level < 10 mg/dL (0-10)
[2025-08-04 16:42] LABS: Ammonia 68 umol/L (11-51)
[2025-08-04 16:55] LABS: Lipase 19 U/L (13-60)
[2025-08-04 17:24] LABS: Respiratory Syncytial Virus Ce NEGATIVE (Negative); SARS-CoV-2 PCR NEGATIVE (Negative)
[2025-08-04 19:32] LABS: Troponin T (5th) Once 42 ng/L (0-10)
[2025-08-04 20:07] LABS: C.Diff PCR (Lab) POSITIVE (Negative)
[2025-08-04 20:22] LABS: Clostridioides Difficile Toxin NEGATIVE (Negative)
[2025-08-04] MEDS: LORazepam 2 mg/mL INJ 1 mL 1 MG IVP (21:17)
[2025-08-05] VITALS (9 sets, daily range): BP systolic 100–123; BP diastolic 57–80; PULSE 70–94; RESP 16–22; TEMP 36.3–37.3; O2SAT 91–98
[2025-08-05 00:02] LABS: PCP Screen Urine Negative (Negative)
[2025-08-05] MEDS: heparin 5,000 unit/mL INJ 1 mL 5000 UNIT SUBCUT ×2 (00:05→13:01)
[2025-08-05 04:46] LABS: Hematocrit 35.9 % (36-47); Hemoglobin 12.00 g/dL (11.27-16.99); Mean Corpuscular HGB Conc 33.4 g/dL (30-55); Mean Corpuscular Hemoglobin 30.2 pg (27-33); Mean Corpuscular Volume 90.2 fl (85-98); Nucleated Red Blood Cells % 0 %; Platelet Count 198 10^3/cmm (157-399); Red Blood Count 3.98 10^6/uL (3.85-5.65); White Blood Count 11.69 10^3/uL (3.29-11.43)
[2025-08-05] MEDS: ATORVASTATIN 20 MG TABLET PO (04:49)
[2025-08-05 05:10] LABS: Alanine Aminotransferase 15 U/L (0-33); Albumin Level 3.1 g/dL (3.5-5.2); Alkaline Phosphatase 102 U/L (35-105); Anion Gap 16.9 (5-19); Aspartate Amino Transferase 23 U/L (0-32); Blood Urea Nitrogen 10 mg/dL (8-23); Calcium 8.2 mg/dL (8.5-10.5); Carbon Dioxide 20 mmol/L (22-29); Chloride 104 mmol/L (98-107); Creatinine Clr Calc Pharmacy 64.8311; Globulin 2.6 g/dL (1.3-4.6); Glucose 123 mg/dL (65-115); Osmolality Calculated 286 mOsm/kg (285-295); Sodium 138 mmol/L (136-145); Total Protein 5.7 g/dL (6.6-8.7)
[2025-08-05 05:24] LABS: Potassium 2.9 mmol/L (3.5-5.1)
--- NOTE | 2025-08-05 08:27 | CTR_ITS ---
PROCEDURE INFORMATION: Exam: CTA Chest With Contrast Exam date and time: 08/05/2025 9:07 AM Age: 84 years old Clinical indication: Shortness of breath; Additional info: R/O pe TECHNIQUE: Imaging protocol: Computed tomographic angiography of the chest with contrast. Exam focused on the arteries. 3D rendering (Not supervised by radiologist): MIP and/or 3D reconstructed images were created by the technologist. Radiation optimization: All CT scans at this facility use at least one of these dose optimization techniques: automated exposure control; mA and/or kV adjustment per patient size (includes targeted exams where dose is matched to clinical indication); or iterative reconstruction. Contrast material: OMNIPAQUE 350; Contrast volume: 100 ml; Contrast route: INTRAVENOUS (IV); COMPARISON: [place] [id number] 08/04/2025 1:47 PM RADIATION DOSE METRICS: Total DLP (mGy-cm): 523.64 FINDINGS: Pulmonary arteries: No convincing CT evidence of pulmonary embolism. Unchanged enlarged central pulmonary arteries suggesting pulmonary artery hypertension. Aorta: Unremarkable. No aortic aneurysm. No aortic dissection. Lungs: Unremarkable. No consolidation. No masses. Pleural spaces: Unremarkable. No pneumothorax. No pleural effusion. Heart: Slightly increased moderate cardiomegaly. Now evident is right heart strain. The right ventricular to left ventricular ratio is 1.2. Coronary arteries: Unchanged tiny amounts of coronary artery calcification. Lymph nodes: Unremarkable. No enlarged lymph nodes. Bones/joints: Nothing acute. No change. Soft tissues: Unchanged findings of probable bilateral mastectomies. Otherwise, unremarkable visualized body wall. Otherwise, unremarkable soft tissues. Other findings: Unchanged visualized upper abdominal structures. CT/CT angio chest PE protcl [id number] IMPRESSION: 1. No convincing CT evidence of pulmonary embolism. 2. Unchanged enlarged central pulmonary arteries suggesting pulmonary artery hypertension. 3. Slightly increased moderate cardiomegaly. Now evident is right heart strain. 4. No other acute thoracic findings. 5. Additional details as above. Unchanged.
[2025-08-05] MEDS: iohexol 350 mg/mL 500 mL Btl (per mL) IV (09:21)
[2025-08-05] MEDS: potassium phosphate (mEq K) 40 MEQ in sodium chloride 0.9% (100 ml) 100 ML 27.25 MEQ IV (09:51)
--- NOTE | 2025-08-05 15:08 | P.PN_ITS ---
Subjective 2 Subjective: Patient was seen this morning, currently alert oriented x 3, following all commands, she is much more alert and awake, daughter at bedside, no chest pain, no shortness of breath, no cough, no abdominal pain, does report diarrhea Vitals/I&O/Wt Last Vital Signs Temp 98.3 F 08/05/25 11:49 Pulse 77 08/05/25 11:49 Resp 16 08/05/25 11:49 BP 100/58 08/05/25 11:49 Pulse Ox 94 08/05/25 11:49 O2 Del Method Room Air 08/05/25 11:49 O2 Flow Rate 95 08/04/25 05:29 08/05/25 08/05/25 08/05/25 06:59 14:59 22:59 Intake Total 410 / 1860 992.5 / 992.5 Output Total 400 / 400 750 / 750 Balance 1460 242.5 / 242.5 Weight last 48 hrs Weight 103.737 kg Weight 101.605 kg Weight 101.605 kg Physical Exam 2 Const: COMMON NORMALS: no acute distress and patient oriented x3 Resp: COMMON NORMALS: normal respiratory effort, No retractions, No use of accessory muscles and clear to auscultation bilaterally AUSCULTATION: clear to auscultation bilaterally Cardio: COMMON NORMALS: regular rate, regular rhythm, S1 normal heart sound present and S2 normal heart sound present RATE: regular rate RHYTHM: r egular rhythm HEART SOUNDS: S1 normal heart sound present and S2 normal heart sound present GI: COMMON NORMALS: Normal to inspection, nondistended, normoactive bowel sounds present and non-tender Extremity: COMMON NORMALS: no pedal edema Neuro: COMMON NORMALS: patient oriented x3 Psych: COMMON NORMALS: mental status grossly normal Urinary Catheter Management: Allen: Cath Placed During This Visit: yes Reason for Continuing Indwelling Catheter: Acute Urinary Retention or Obstruction Urinary Catheter Date of Insertion: 08/05/25 Urinary Catheter Time of Insertion: 00:00 Data 08/05/25 04:38 08/05/25 04:38 Micro: Microbiology 08/03/25 22:10 Blood Culture - Preliminary Blood NEGATIVE TO DATE 08/03/25 21:01 Blood Culture - Preliminary Blood NEGATIVE TO DATE A&P Assessment and plan 1. Dehydration: 2. Sepsis: 3. Lactic acidosis: 4. Metabolic encephalopathy: 5. Acute encephalopathy: Plan: Acute encephalopathy, encephalopathy, generalized weakness, inability to walk, - Etiology unclear -Leukocytosis, leukocytosis 14.67, neutrophilic - ESR 24 - CRP 109 - Pro-Don 0.1 - Urinalysis within normal limits - Chest x-ray within normal limits - CT head FINDINGS: Brain: Unchanged right parietal infarct. Small subcortical infarct in the left posterior parietal lobe is unchanged. Basal ganglia and subinsular hypodensities are unchanged, representing chronic ischemia. Additional mild periventricular white matter hypodensity is unchanged representing chronic small-vessel ischemic disease. 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 No mass effect or midline shift. No intracranial hemorrhage. Cerebral ventricles: No ventriculomegaly. Paranasal sinuses: Fluid fills the sphenoid sinuses. Mucosal thickening in the ethmoid air cells and maxillary sinuses. Mastoid air cells: Visualized mastoid air cells are well aerated. Bones: Unremarkable. No acute fracture. Soft tissues: Unremarkable. -CONCLUSIONS Normal left ventricular size, systolic function and wall thickness, with no regional wall motion abnormalities. Left ventricular ejection fraction is estimated at 60 %. Grade I/IV diastolic dysfunction (abnormal relaxation filling pattern), normal to mildly elevated filling pressures. No significant valvular abnormalities. There are no intracardiac masses. Right atrial pressure is around 5 mm of mercury. Carotid artery ultrasound US/CV carotid duplex BI* [id number] IMPRESSION: 1. No carotid arterial stenosis. 2. Antegrade flow in bilateral vertebral arteries. CT chest abdomen pelvis [place] [id number] IMPRESSION: 1. The lungs are clear. 2. Cardiomegaly. 3. Pulmonary trunk is dilated, measuring up to 4.3 cm in diameter. The bilateral main pulmonary arteries are also dilated, 3.3 cm on the right, and on the left. 4. Mild pulmonary vascular prominence. Suggestive of pulmonary venous hypertension. IMPRESSION: 1. Pancreas is mildly edematous, with moderate peripancreatic inflammatory change. No ductal dilatation or focal pancreatic lesion. Suggestive of acute interstitial edematous pancreatitis. Recommend correlation. 2. Mild thickening of the entire colon and rectum noted with minimal pericolonic and perirectal hyperemia. Nonspecific. May represent acute infectious/inflammatory proctitis. Recommend correlation. 3. Moderate to severe pancolonic diverticulosis without distinct acute diverticulitis. -C. difficile positive, C. difficile colitis Plan - Continue p.o. vancomycin - Isolation precautions - Hyperammonemia, monitor -IV fluids -Follow-up blood cultures -Potential withdrawal from gabapentin will resume - Neurochecks - NIH stroke scale -PT OT - Full code - Lovenox for DVT prophylaxis PDMP PDMP Reviewed: Last Reviewed 08/04/25 14:42 by Anson Davalos MD Attestations 2 Medical Necessity Statement*: Patient requires hospitalization for C. difficile colitis Diagnoses Dehydration E86.0 Sepsis A41.9 Lactic acidosis E87.20 Metabolic encephalopathy G93.41 Acute encephalopathy G93.40
[2025-08-06] VITALS (7 sets, daily range): BP systolic 110–133; BP diastolic 67–80; PULSE 69–75; RESP 16–18; TEMP 36.3–37; O2SAT 95–98; BMI 38.5
[2025-08-06] MEDS: heparin 5,000 unit/mL INJ 1 mL 5000 UNIT SUBCUT (00:50)
[2025-08-06] MEDS: ATORVASTATIN 20 MG TABLET PO (04:45)
[2025-08-06 05:29] LABS: Hematocrit 36.9 % (36-47); Hemoglobin 11.90 g/dL (11.27-16.99); Mean Corpuscular HGB Conc 32.2 g/dL (30-55); Mean Corpuscular Hemoglobin 29.8 pg (27-33); Mean Corpuscular Volume 92.3 fl (85-98); Nucleated Red Blood Cells % 0 %; Platelet Count 202 10^3/cmm (157-399); Red Blood Count 4.00 10^6/uL (3.85-5.65); White Blood Count 5.99 10^3/uL (3.29-11.43)
[2025-08-06 05:47] LABS: Alanine Aminotransferase 17 U/L (0-33); Albumin Level 3.1 g/dL (3.5-5.2); Alkaline Phosphatase 91 U/L (35-105); Anion Gap 14.2 (5-19); Aspartate Amino Transferase 24 U/L (0-32); Blood Urea Nitrogen 8 mg/dL (8-23); Calcium 8.3 mg/dL (8.5-10.5); Carbon Dioxide 22 mmol/L (22-29); Chloride 107 mmol/L (98-107); Creatinine Clr Calc Pharmacy 66.3876; Globulin 2.5 g/dL (1.3-4.6); Glucose 96 mg/dL (65-115); Osmolality Calculated 288 mOsm/kg (285-295); Potassium 3.2 mmol/L (3.5-5.1); Sodium 140 mmol/L (136-145); Total Protein 5.6 g/dL (6.6-8.7)
--- NOTE | 2025-08-06 11:44 | PC.SOCIAL ---
IMM Update Updated pt on IMM. No questions voiced. Provided pt a copy. Initialed, dated, & timed a copy & placed in chart.
--- NOTE | 2025-08-06 12:36 | PC.NURSE ---
Verbal order to discontinue IV fluids due to patient being discharged.
--- NOTE | 2025-08-06 12:38 | PC.NURSE ---
Patient refused heparin due to being discharged home.
--- NOTE | 2025-08-06 15:34 | PC.NURSE ---
Discussed discharge with patient and daughter. Went over new medications and follow up appointments. All questions answered and verbalized understanding
--- NOTE | 2025-08-06 18:15 | P.DS_ITS ---
Discharge Providers Date of Admission: 08/03/25 21:06 Date of Discharge: August 06, 2025 Attending Provider at Admission: Ely Smith MD Attending Provider at Discharge: Anson Davalos MD Primary Care Provider: George Walker MD Diagnoses at Discharge Discharge Diagnosis 1. Dehydration: 2. Sepsis: 3. Lactic acidosis: 4. Metabolic encephalopathy: 5. Acute encephalopathy: Reason for Visit Reason for Visit: Stroke like [facility] Hospital Course Hospital Course This is a 84 female with a past medical history of hyperlipidemia, recent history of UTI placed on oral antibiotics Acute encephalopathy, encephalopathy, generalized weakness, inability to walk, - Secondary to dehydration, acute metabolic encephalopathy, secondary to C. difficile colitis -Leukocytosis, leukocytosis 14.67, neutrophilic - ESR 24 - CRP 109 - Pro-Don 0.1 - Urinalysis within normal limits - Chest x-ray within normal limits - CT head FINDINGS: Brain: Unchanged right parietal infarct. Small subcortical infarct in the left posterior parietal lobe is unchanged. Basal ganglia and subinsular hypodensities are unchanged, representing chronic ischemia. Additional mild periventricular white matter hypodensity is unchanged representing chronic small-vessel ischemic disease. 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 No mass effect or midline shift. No intracranial hemorrhage. Cerebral ventricles: No ventriculomegaly. Paranasal sinuses: Fluid fills the sphenoid sinuses. Mucosal thickening in the ethmoid air cells and maxillary sinuses. Mastoid air cells: Visualized mastoid air cells are well aerated. Bones: Unremarkable. No acute fracture. Soft tissues: Unremarkable. -CONCLUSIONS Normal left ventricular size, systolic function and wall thickness, with no regional wall motion abnormalities. Left ventricular ejection fraction is estimated at 60 %. Grade I/IV diastolic dysfunction (abnormal relaxation filling pattern), normal to mildly elevated filling pressures. No significant valvular abnormalities. There are no intracardiac masses. Right atrial pressure is around 5 mm of mercury. Carotid artery ultrasound US/CV carotid duplex BI* [id number] IMPRESSION: 1. No carotid arterial stenosis. 2. Antegrade flow in bilateral vertebral arteries. CT chest abdomen pelvis [place] [id number] IMPRESSION: 1. The lungs are clear. 2. Cardiomegaly. 3. Pulmonary trunk is dilated, measuring up to 4.3 cm in diameter. The bilateral main pulmonary arteries are also dilated, 3.3 cm on the right, and on the left. 4. Mild pulmonary vascular prominence. Suggestive of pulmonary venous hypertension. IMPRESSION: 1. Pancreas is mildly edematous, with moderate peripancreatic inflammatory change. No ductal dilatation or focal pancreatic lesion. Suggestive of acute interstitial edematous pancreatitis. Recommend correlation. 2. Mild thickening of the entire colon and rectum noted with minimal pericolonic and perirectal hyperemia. Nonspecific. May represent acute infectious/inflammatory proctitis. Recommend correlation. 3. Moderate to severe pancolonic diverticulosis without distinct acute diverticulitis. -C. difficile positive, C. difficile colitis - Patient was started on p.o. vancomycin - Patient significantly improved, alert oriented x 3, following commands, no focal neurologic deficits, no focal weakness, diarrhea resolved, no abdominal pain - Will be discharged on p.o. vancomycin - Advised to patient hand wash, avoid immunocompromise individuals, probiotics, follow-up with primary care provider Physical Exam Const: COMMON NORMALS: no acute distress and patient oriented x3 HENMT: COMMON NORMALS: normocephalic HEAD & SCALP: normocephalic Eye: COMMON NORMALS: Equal, round and reactive pupils present PUPIL: Yes Equal, round and reactive pupils present Resp: COMMON NORMALS: normal respiratory effort, No retractions, No use of accessory muscles and clear to auscultation bilaterally AUSCULTATION: clear to auscultation bilaterally Cardio: COMMON NORMALS: regular rate, regular rhythm, S1 normal heart sound present and S2 normal heart sound present RATE: regular rate RHYTHM: regular rhythm HEART SOUNDS: S1 normal heart sound present and S2 normal heart sound present GI: COMMON NORMALS: Normal to inspection, nondistended, normoactive bowel sounds present and non-tender Extremity: COMMON NORMALS: no calf tenderness and no pedal edema Neuro: COMMON NORMALS: patient oriented x3, CN's II-XII intact bilaterally, moves all extremities and no focal motor deficits Psych: COMMON NORMALS: mental status grossly normal Urinary Catheter Management: Allen: Cath Placed During This Visit: yes Reason for Continuing Indwelling Catheter: Other Urinary Catheter Date of Insertion: 08/05/25 Urinary Catheter Time of Insertion: 00:00 Discharge Data Studies Completed and Pending Completed Studies During Hospitalization Category Date Time Status CT angio chest PE protcl [id number] Stat Cat Scan 08/05/25 08:[address] chest abdomen pelvis [[place] [id number] Cat Scan 08/04/25 12:32 Completed ] Routine CT head wo con* [id number] Stat Cat Scan 08/03/25 19:33 Completed XR chest 1V portable [id number] Stat Exams 08/03/25 16:15 Completed CV carotid duplex BI* [id number] Routine Ultrasound 08/04/25 08:29 Completed CV. echo complete* [id number] Routine Ultrasound 08/04/25 08:29 Completed Pending at discharge Category Date Time Status Blood Culture Stat Lab 08/03/25 22:10 Results Radiology Impressions Chest X-Ray 08/03/25 16:15 IMPRESSION: No acute cardiopulmonary pathology. Head CT 08/03/25 19:33 IMPRESSION: 1. Unchanged appearance to cerebral and cerebellar ischemic changes. 2. No acute intracranial abnormality noted. MRI should be considered in continuing evaluation of altered mental status. 3. Persistent sinusitis. Carotid Doppler Study 08/04/25 08:29 IMPRESSION: 1. No carotid arterial stenosis. 2. Antegrade flow in bilateral vertebral arteries. REFERENCES: SRU CRITERIA. The degree of internal carotid artery stenosis is based on criteria defined by the Society of Radiologists in Ultrasound (SRU). Normal is no stenosis. Mild is less than 50% stenosis. Moderate is 50-69% stenosis. Severe is greater than 69% stenosis to near occlusion. Near occlusion is a markedly narrowed lumen. Total occlusion is no detectable patent lumen. Giselle Austin, et al. Carotid Artery Stenosis: Milian-Scale and Doppler US Diagnosis-Society of Radiologists in Ultrasound Consensus Conference. Radiology 2003; 229:340-346. Chest/Abdomen/Pelvis CT 08/04/25 12:32 IMPRESSION: 1. The lungs are clear. 2. Cardiomegaly. 3. Pulmonary trunk is dilated, measuring up to 4.3 cm in diameter. The bilateral main pulmonary arteries are also dilated, 3.3 cm on the right, and on the left. 4. Mild pulmonary vascular prominence. Suggestive of pulmonary venous hypertension. IMPRESSION: 1. Pancreas is mildly edematous, with moderate peripancreatic inflammatory change. No ductal dilatation or focal pancreatic lesion. Suggestive of acute interstitial edematous pancreatitis. Recommend correlation. 2. Mild thickening of the entire colon and rectum noted with minimal pericolonic and perirectal hyperemia. Nonspecific. May represent acute infectious/inflammatory proctitis. Recommend correlation. 3. Moderate to severe pancolonic diverticulosis without distinct acute diverticulitis. Chest CTA 08/05/25 08:27 IMPRESSION: 1. No convincing CT evidence of pulmonary embolism. 2. Unchanged enlarged central pulmonary arteries suggesting pulmonary artery hypertension. 3. Slightly increased moderate cardiomegaly. Now evident is right heart strain. 4. No other acute thoracic findings. 5. Additional details as above. Unchanged. Laboratory Results WBC 5.99 10^3/uL (3.29-11.43) 08/06/25 04:48 RBC 4.00 10^6/uL (3.85-5.65) 08/06/25 04:48 Hgb 11.90 g/dL (11.27-16.99) 08/06/25 04:48 Hct 36.9 % (36-47) 08/06/25 04:48 MCV 92.3 fl (85-98) 08/06/25 04:48 MCH 29.8 pg (27-33) 08/06/25 04:48 MCHC 32.2 g/dL (30-55) 08/06/25 04:48 RDW 14.1 % (12.1-15.1) 08/06/25 04:48 Plt Count 202 10^3/cmm (157-399) 08/06/25 04:48 MPV 9.8 fL (7.4-10.4) 08/06/25 04:48 Neut % (Auto) 68.3 % 08/06/25 04:48 Lymph % (Auto) 18.2 % 08/06/25 04:48 [place] % (Auto) 11.5 % 08/06/25 04:48 Eos % (Auto) 1.5 % 08/06/25 04:48 Baso % (Auto) 0.2 % 08/06/25 04:48 Neut # (Auto) 4.09 10^3/uL (1.8-7.7) 08/06/25 04:48 Lymph # (Auto) 1.1 10^3/uL (0.8-4.8) 08/06/25 04:48 [place] # (Auto) 0.7 10^3/uL (0.2-0.9) 08/06/25 04:48 Eos # (Auto) 0.1 10^3/uL (0.0-0.8) 08/06/25 04:48 Baso # (Auto) 0.0 10^3/uL (0.0-0.1) 08/06/25 04:48 Nucleated RBC % (auto) 0 % 08/06/25 04:48 Nucleated RBCs # 0.0 /100WBC 08/06/25 04:48 ESR 24 mm/hr (0-15) H 08/04/25 08:56 D-Dimer 1.60 ug/mLFEU (0-0.59) H 08/04/25 04:57 Specimen Type Arterial 08/03/25 20:00 Sample Site Radial, left 08/03/25 20:00 ABG pH 7.48 (7.35-7.45) H 08/03/25 20:00 ABG pCO2 37.1 mmHg (35-45) 08/03/25 20:00 ABG pO2 62.8 mmHg (80.0-100.0) L 08/03/25 20:00 ABG HCO3 27.6 mmol/L (22-26) H 08/03/25 20:00 ABG Base Excess 4.0 mmol/L (-2.0-2.0) H 08/03/25 20:00 Greg Test Pos 08/03/25 20:00 Hematocrit 41.2 % (37-47) 08/03/25 20:00 O2 Delivery Device Room air 08/03/25 20:00 Computerized [employer] Recorder ID [email or web address] 08/03/25 20:00 Sodium 140 mmol/L (136-145) 08/06/25 04:48 Potassium 3.2 mmol/L (3.5-5.1) L 08/06/25 04:48 Chloride 107 mmol/L (98-107) 08/06/25 04:48 Carbon Dioxide 22 mmol/L (22-29) 08/06/25 04:48 Anion Gap 14.2 (5-19) 08/06/25 04:48 BUN 8 mg/dL (8-23) 08/06/25 04:48 Creatinine 0.6 mg/dL (0.5-0.9) 08/06/25 04:48 GFR Calculation Not Reportable 08/06/25 04:48 Glucose 96 mg/dL (65-115) 08/06/25 04:48 POC Glucose 103 mg/dL (70-110) 08/03/25 16:13 Calculated Osmolality 288 mOsm/kg (285-295) 08/06/25 04:48 Lactic Acid 2.4 mmol/L (0.5-2.2) H 08/03/25 16:58 Lactic Acid (Sepsis) 1.4 mmol/L (0.5-2.2) 08/03/25 21:01 Calcium 8.3 mg/dL (8.5-10.5) L 08/06/25 04:48 Phosphorus 2.2 mg/dL (2.5-4.5) L 08/05/25 04:38 Magnesium 1.9 mg/dL (1.7-2.3) 08/04/25 04:57 Total Bilirubin 0.3 mg/dL (0.15-1.2) 08/06/25 04:48 AST 24 U/L (0-32) 08/06/25 04:48 ALT 17 U/L (0-33) 08/06/25 04:48 Alkaline Phosphatase 91 U/L (35-105) 08/06/25 04:48 Ammonia 68 umol/L (11-51) H 08/04/25 15:47 Troponin T 5th Gen ng/L 42 ng/L (0-10) H 08/04/25 18:48 Troponin T Baseline 13 ng/L (0-10) H 08/04/25 08:56 Troponin T 120 Minute 17.14 ng/L (0-10) H 08/04/25 11:33 Delta Troponin T 4.14 ABS# (0-10) 08/04/25 11:33 Troponin T Hi Sens 6Hr 32.74 ng/L (0-10) H 08/04/25 15:47 Troponin T Hi Sens 6Hr Delta 19.74 ng/L (0-12) H* 08/04/25 15:47 C-Reactive Protein 109.4 mg/L (0.0-4.9) H 08/04/25 08:56 Total Protein 5.6 g/dL (6.6-8.7) L 08/06/25 04:48 Albumin 3.1 g/dL (3.5-5.2) L 08/06/25 04:48 Globulin 2.5 g/dL (1.3-4.6) 08/06/25 04:48 Lipase 19 U/L (13-60) 08/04/25 04:57 Procalcitonin 0.11 ng/mL (0-0.5) 08/04/25 08:56 TSH 0.47 uIU/mL (0.27-4.20) 08/04/25 15:47 Urine Color Yellow (Yellow) 08/03/25 20:19 Urine Appearance Clear (CLEAR) 08/03/25 20:19 Urine pH 7.5 (5-7) 08/03/25 20:19 Ur Specific [place] 1.022 (1.005-1.030) 08/03/25 20:19 Urine Protein Trace (Negative) A 08/03/25 20:19 Urine Glucose (UA) Negative (Normal) 08/03/25 20:19 Urine Ketones Negative (Negative) 08/03/25 20:19 Urine Blood Negative (Negative) 08/03/25 20:19 Urine Nitrate Negative (Negative) 08/03/25 20:19 Urine Bilirubin Negative (Negative) 08/03/25 20:19 Urine Urobilinogen 1.0 mg/dL (Negative) 08/03/25 20:19 Ur Leukocyte Esterase Negative (Negative) 08/03/25 20:19 Urine RBC 0-2 /hpf (0-2) 08/03/25 20:19 Urine WBC 0-5 /hpf (0-5) 08/03/25 20:19 Ur Squamous Epith Cells 0-5 /hpf (0-5) 08/03/25 20:19 Amorphous Sediment Not Reportable 08/03/25 20:19 Urine Bacteria None seen /hpf (NONE) 08/03/25 20:19 Hyaline Casts 1.65 /lpf 08/03/25 20:19 Urine Opiates Screen Positive ng/mL (Negative) H 08/04/25 23:44 Ur Barbiturates Screen Negative ng/mL (Negative) 08/04/25 23:44 Ur Phencyclidine Scrn Negative ng/mL (Negative) 08/04/25 23:44 Ur Amphetamines Screen Negative ng/mL (Negative) 08/04/25 23:44 U Benzodiazepines Scrn Negative ng/mL (Negative) 08/04/25 23:44 Urine Cocaine Screen Negative ng/mL (Negative) 08/04/25 23:44 U Marijuana (THC) Screen Negative ng/mL (Negative) 08/04/25 23:44 Ethyl Alcohol < 10 mg/dL (0-10) 08/04/25 15:47 C. difficile (PCR) Positive (Negative) H 08/04/25 18:30 C.difficile Tox Confrm Negative (Negative) 08/04/25 18:30 Influenza A (PCR) Negative (Negative) 08/04/25 16:05 Influenza Type B (PCR) Negative (Negative) 08/04/25 16:05 RSV (PCR) Negative (Negative) 08/04/25 16:05 SARS-CoV-2 (PCR) Negative (Negative) 08/04/25 16:05 Vitals Last Vital Signs Temp 97.3 F L 08/06/25 15:15 Pulse 69 08/06/25 15:15 Resp 18 08/06/25 15:15 BP 124/75 08/06/25 15:15 Pulse Ox 97 08/06/25 15:15 O2 Del Method Room Air 08/06/25 12:38 O2 Flow Rate 95 08/04/25 05:29 Discharge Plan Discharge Patient Disposition: Home Condition: Stable Prescriptions: New vancomycin 125 mg Capsule 125 mg PO Q6H 10 Days Qty: 40 0RF Continued hydrocodone-acetaminophen 5-325 mg tablet 1 tab PO BID PRN (Reason: pain) 30 Days Qty: 60 0RF Rx Instructions: Fill Now gabapentin 400 mg capsule See Rx Instructions .ROUTE .COMPLEX Qty: 450 3RF Dose Instruction: TAKE 3 CAPSULES BY MOUTH TWICE DAILY FOR pain *ok TO take TWO EVERY MORNING and THREE at night* Rx Instructions: TAKE 3 CAPSULES BY MOUTH TWICE DAILY FOR pain *ok TO take TWO EVERY MORNING and THREE at night* ondansetron 4 mg tablet,disintegrating 4 mg PO Q8H PRN (Reason: nausea and vomiting) Qty: 10 0RF atorvastatin 20 mg tablet 20 mg PO DAILY hydrochlorothiazide 12.5 mg capsule 12.5 mg PO DAILY aspirin [Joe Low Dose Aspirin] 81 mg Tablet,Delayed Release (Dr/Ec) 81 mg PO DAILY Discontinued cephalexin 500 mg tablet 500 mg PO TID 7 Days Qty: 21 0RF Discharge Order = DC NOW: Discharge Order (Routine); Ordered 08/06/25 Ordered By: Anson Davalos Referrals: George Walker MD [Primary Care Provider, [facility]] Referral Note: please contact your primary care doctor for a hospital stay follow up Discharge Diet: Cardiac Discharge Activity: Resume usual activity Patient Instructions: Vancomycin (By mouth), Urinary Tract Infection in Women (DC), C. Diff (Clostridioides Difficile) Infection (DC), Opioid Safety, Patient Portal & Connei Instructions Activity Restrictions/Additional Instructions: - Please follow-up with primary care provider - Please continue to head wash - Monitor for diarrhea Discharge Attestations Time Spent in Discharge Care*: greater than 30 min Quality Metrics Clinical Quality Measures [ No reported AMI, CVA or VTE this stay] Coding Level of Care Code 58424 Total time (in minutes) for Discharge: 45 Diagnoses Dehydration E86.0 Sepsis A41.9 Lactic acidosis E87.20 Metabolic encephalopathy G93.41 Acute encephalopathy G93.40
== END 2025-08-06 15:38 | disposition home or self-care (01) | DRG 871 ==
LOC: ER 21:01 → MEDSURG 22:13
PROVIDERS: Emergency Medicine; Admitting Provider Internal Medicine; Emergency Provider Emergency Medicine; PCP Family Medicine; Visit Provider Family Medicine
DX: A41.9 Sepsis, unspecified organism (principal); G93.41 Metabolic encephalopathy; E87.20 Acidosis, unspecified; A04.72 Enterocolitis due to Clostridium difficile, not specified as recurrent; E78.5 Hyperlipidemia, unspecified; I25.10 Atherosclerotic heart disease of native coronary artery without angina pectoris; I10 Essential (primary) hypertension; E86.0 Dehydration; Z87.440 Personal history of urinary (tract) infections; Z86.73 Personal history of transient ischemic attack (TIA), and cerebral infarction without residual deficits; Z85.9 Personal history of malignant neoplasm, unspecified; Z87.891 Personal history of nicotine dependence
CPT/HCPCS: 36415; 36416; 36600; 51701; 51702; 70450; 71045; 71250; 71275; 74176; 80053; 80306; 80307; 81001; 82140; 82803; 82962; 83605; 83690; 83735; 84100; 84145; 84443; 84484; 85025; 85378; 85651; 86140; 87040; 87324; 87493; 87637; 93005; 93306; 93880; 96365; 96372; 97161; 97166; 99285; J1644; J2060; J2543; J3372; J3490; J7030; J9999